=== PATIENT | female | born 1970 | race Caucasian/White ===

== ENCOUNTER 2021-02-07 01:50 | Inpatient (IN) | payer MEDICARE, OTHER ==
[2021-02-07 01:59] LABS: Glucose,Whole Blood 573 mg/dL (75-99)
[2021-02-07] MEDS ORDERED: Magnesium Replacement Protocol 1 EACH MISC MISCELLANE PRN (02:46)
[2021-02-07] MEDS ORDERED: Potassium Replacement Protocol 1 EACH MISC MISCELLANE PRN (02:46)
[2021-02-07 02:47] LABS: Basophils % (A) 0 %; Eosinophils % (A) 0 %; HCT 38.9 % (34.0-46.0); HGB 12.1 gm/dL (11.4-16.0); Hypochromasia Slight; Lymphocytes # (A) 1.5 k/uL (1.0-4.8); Lymphocytes % (A) 11 %; MCH 31.3 pg (25.0-35.0); MCV 100.7 fL (80.0-100.0); Monocytes # (A) 1.6 k/uL (0-1.0); Monocytes % (A) 11 %; Neutrophils # (A) 10.9 k/uL (1.3-7.7); Neutrophils % (A) 77 %; Platelet Count 209 k/uL (150-450); RBC 3.86 m/uL (3.80-5.40); RDW 11.2 % (11.5-15.5); WBC 14.1 k/uL (3.8-10.6)
[2021-02-07 02:59] LABS: ALT 19 U/L (4-34); AST 25 U/L (14-36); African American GFR (CKD) 39 (>60 ml/min/1.73 sqM); Albumin 3.4 g/dL (3.5-5.0); Alkaline Phosphatase 128 U/L (38-126); Anion Gap 26 mmol/L; Blood Urea Nitrogen 44 mg/dL (7-17); Calcium 8.8 mg/dL (8.4-10.2); Chloride 98 mmol/L (98-107); Non-African American GFR(CKD) 34 (>60 ml/min/1.73 sqM); Potassium 5.3 mmol/L (3.5-5.1); Sodium 130 mmol/L (137-145); Total Bilirubin 0.3 mg/dL (0.2-1.3); Total Protein 6.2 g/dL (6.3-8.2)
[2021-02-07 03:21] LABS: Carbon Dioxide 6 mmol/L (22-30); Glucose 565 mg/dL (74-99)
[2021-02-07] MEDS: SODIUM CHLORIDE 0.9% 1,000 ML IV SCH ×2 (03:24→09:05)
[2021-02-07 03:25] LABS: Glucose,Whole Blood 562 mg/dL (75-99)
[2021-02-07] MEDS: INSULIN REGULAR 100 UNIT in SODIUM CHLORIDE 0.9% 100 ML IV SCH ×2 (03:28→12:11)
[2021-02-07 04:24] LABS: Glucose,Whole Blood 550 mg/dL (75-99)
[2021-02-07] MEDS ORDERED: SODIUM CHLORIDE 0.9% 1,000 ML IV ONE (05:10)
[2021-02-07 05:24] LABS: Glucose,Whole Blood 482 mg/dL (75-99)
[2021-02-07 06:14] LABS: VBG PH 7.07 (7.31-7.41)
[2021-02-07 06:25] LABS: Glucose,Whole Blood 447 mg/dL (75-99)
[2021-02-07 06:29] LABS: Phosphorus 5.8 mg/dL (2.5-4.5); Potassium 5.4 mmol/L (3.5-5.1)
[2021-02-07 07:19] LABS: Glucose,Whole Blood 413 mg/dL (75-99)
--- NOTE | 2021-02-07 08:23 | ED ---
General Adult HPI - General Chief complaint: Recheck/Abnormal Lab/Rx Stated complaint: Hyperglycemia Time Seen by Provider: 02/07/21 01:57 Source: patient, EMS Mode of arrival: EMS Limitations: no limitations - History of Present Illness Initial comments: This patient is a 50-year-old woman who presents as a transfer from [facility]. The patient had gone to the other facility this evening. She states that she had gone there because her blood sugar had been running high for about a day and she had not been able to get it under control. Patient states she was not feeling well but was not able to identify any specific issue. She denied chest pain, dyspnea. She stated that her abdomen was uncomfortable but there was no specific pain. Denies dysuria. At the other facility, the patient was found to have blood glucose 713. Her venous pH was 7 with a pCO2 of 36. Patient started on IV fluids and insulin. There were reportedly no ICU beds there and patient requested to be transferred here. Chest x-ray was performed and showed just some atelectasis at the bases. Urinalysis consistent with DKA. Electrolytes showed sodium 123, potassium 5.7, chloride 85, CO2 8, anion gap 30, BUN 48, creatinine 1.6 COVID-19 swab negative. Troponin negative CBC showed mild leukocytosis 13.3 otherwise unremarkable. Onset/Timin -: days(s) Radiation: abdomen Quality: other (Cramping) Consistency: constant Improves with: none Worsens with: none Associated Symptoms: malaise Treatments Prior to Arrival: other (Insulin and IV fluids) - Related Data Home Medications Medication Instructions Recorded Confirmed Albuterol Inhaler [Ventolin Hfa 2 puff INHALATION RT-QID PRN 02/07/21 02/08/21 Inhaler] Clopidogrel [Plavix] 75 mg PO DAILY 02/07/21 02/08/21 Dextroamphetamine/Amphetamine 10 mg PO BID 02/07/21 02/08/21 [Adderall] Divalproex [Depakote] 500 mg PO BID 02/07/21 02/08/21 Enalapril [Vasotec] 10 mg PO BID 02/07/21 02/08/21 Ergocalciferol (Vitamin D2) 1,250 mcg PO Q7D 02/07/21 02/08/21 [Drisdol (50,000 Iu)] Gabapentin [Neurontin] 300 mg PO QID 02/07/21 02/08/21 HYDROmorphone HCL [Dilaudid] 8 mg PO TID PRN 02/07/21 02/08/21 INSULIN LISPRO (For Pump) [humaLOG 0.01 units SQ-PUMP CONTINUOUS 02/07/21 02/08/21 (For Pump)] Levothyroxine Sodium 150 mcg PO DAILY 02/07/21 02/08/21 Sertraline HCl [Zoloft] 100 mg PO DAILY 02/07/21 02/08/21 Simvastatin [Zocor] 40 mg PO DAILY 02/07/21 02/08/21 Amitriptyline HCl [Elavil] 25 mg PO BID 02/08/21 02/08/21 Carvedilol [Coreg] 25 mg PO BID 02/08/21 02/08/21 QUEtiapine FUMARATE [SEROquel] 300 mg PO HS 02/08/21 02/08/21 QUEtiapine [SEROquel] 50 mg PO BID 02/08/21 02/08/21 Travoprost [Travoprost 0.004%] 1 drop BOTH EYES HS 02/08/21 02/08/21 tiZANidine [Zanaflex] 4 mg PO Q6HR PRN 02/08/21 02/08/21 Allergies Allergy/AdvReac Type Severity Reaction Status Date / Time carbamazepine [From Tegretol] Allergy Rash/Hives Verified 02/07/21 07:39 codeine Allergy Rash/Hives Verified 02/07/21 07:39 morphine Allergy Rash/Hives Verified 02/07/21 07:39 Review of Systems ROS Statement: Those systems with pertinent positive or pertinent negative responses have been documented in the HPI. ROS Other: All systems not noted in ROS Statement are negative. Constitutional: Denies: fever, chills, weakness Eyes: Denies: vision change ENT: Denies: throat pain, congestion Respiratory: Denies: cough, dyspnea Cardiovascular: Denies: chest pain, palpitations, edema Gastrointestinal: Denies: abdominal pain, nausea, vomiting, diarrhea, melena, hematochezia Genitourinary: Denies: dysuria, hematuria Musculoskeletal: Denies: back pain Skin: Denies: rash Neurological: Denies: headache, weakness General Exam Limitations: no limitations General appearance: alert, in no apparent distress Head exam: Present: atraumatic, normocephalic Eye exam: Present: normal appearance. Absent: scleral icterus, conjunctival injection ENT exam: Present: mucous membranes dry Neck exam: Present: normal inspection, full ROM Respiratory exam: Present: normal lung sounds bilaterally. Absent: respiratory distress, wheezes, rales, rhonchi, stridor Cardiovascular Exam: Present: regular rate, normal rhythm, normal heart sounds. Absent: systolic murmur, diastolic murmur, rubs, gallop GI/Abdominal exam: Present: soft. Absent: distended, tenderness, guarding, rebound, rigid, mass Extremities exam: Present: normal inspection, normal capillary refill Back exam: Present: normal inspection. Absent: CVA tenderness (R), CVA tenderness (L) Neurological exam: Present: alert Skin exam: Present: warm, dry, intact, normal color. Absent: rash Course Vital Signs 02/07/21 02/07/21 02/07/21 01:57 03:00 04:00 Temperature 97.4 F L Pulse Rate 104 H 106 H 109 H Respiratory 20 20 20 Rate Blood Pressure 120/51 116/55 115/55 O2 Sat by Pulse 99 100 Oximetry 02/07/21 02/07/21 02/07/21 05:00 06:00 07:20 Temperature Pulse Rate 109 H 110 H 111 H Respiratory 20 20 21 Rate Blood Pressure 122/61 120/60 143/73 O2 Sat by Pulse 99 100 98 Oximetry Medical Decision Making - Medical Decision Making Patient's 50-year-old woman transferred here to have treatment for DKA. Labs h ave had some mild improvement versus previous. Her pH has improved from 7.00 to 7.07. Blood glucose still in upper 400s. The IV insulin and fluids are continued. Patient admitted. Case discussed with Dr. Gross, and patient will go to ICU for further management. - Lab Data Result diagrams: 02/08/21 04:11 02/08/21 08:41 Lab Results 02/07/21 02/07/21 02/07/21 Range/Units 01:57 02:13 02:13 WBC 14.1 H (3.8-10.6) k/uL RBC 3.86 (3.80-5.40) m/uL Hgb 12.1 (11.4-16.0) gm/dL Hct 38.9 (34.0-46.0) % MCV 100.7 H (80.0-100.0) fL MCH 31.3 (25.0-35.0) pg MCHC 31.0 (31.0-37.0) g/dL RDW 11.2 L (11.5-15.5) % Plt Count 209 (150-450) k/uL MPV 9.0 Neutrophils % 77 % Lymphocytes % 11 % Monocytes % 11 % Eosinophils % 0 % Basophils % 0 % Neutrophils # 10.9 H (1.3-7.7) k/uL Lymphocytes # 1.5 (1.0-4.8) k/uL Monocytes # 1.6 H (0-1.0) k/uL Eosinophils # 0.0 (0-0.7) k/uL Basophils # 0.0 (0-0.2) k/uL Hypochromasia Slight VBG pH (7.31-7.41) VBG pCO2 (37-51) mmHg VBG HCO3 (24-28) mmol/L Sodium 130 L (137-145) mmol/L Potassium 5.3 H (3.5-5.1) mmol/L Chloride 98 (98-107) mmol/L Carbon Dioxide 6 L* (22-30) mmol/L Anion Gap 26 mmol/L BUN 44 H (7-17) mg/dL Creatinine 1.74 H (0.52-1.04) mg/dL Est GFR (CKD-EPI)AfAm 39 (>60 ml/min/1.73 sqM) Est GFR (CKD-EPI)NonAf 34 (>60 ml/min/1.73 sqM) Glucose 565 H* (74-99) mg/dL POC Glucose (mg/dL) 573 H (75-99) mg/dL POC Glu Rn Resource Nurse ID Sandie Melo Calcium 8.8 (8.4-10.2) mg/dL Phosphorus (2.5-4.5) mg/dL Total Bilirubin 0.3 (0.2-1.3) mg/dL AST 25 (14-36) U/L ALT 19 (4-34) U/L Alkaline Phosphatase 128 H (38-126) U/L Total Protein 6.2 L (6.3-8.2) g/dL Albumin 3.4 L (3.5-5.0) g/dL Acetone, Qual Positive (Negative) Coronavirus (PCR) (Not Detectd) 02/07/21 02/07/21 02/07/21 Range/Units 03:13 03:22 04:23 WBC (3.8-10.6) k/uL RBC (3.80-5.40) m/uL Hgb (11.4-16.0) gm/dL Hct (34.0-46.0) % MCV (80.0-100.0) fL MCH (25.0-35.0) pg MCHC (31.0-37.0) g/dL RDW (11.5-15.5) % Plt Count (150-450) k/uL MPV Neutrophils % % Lymphocytes % % Monocytes % % Eosinophils % % Basophils % % Neutrophils # (1.3-7.7) k/uL Lymphocytes # (1.0-4.8) k/uL Monocytes # (0-1.0) k/uL Eosinophils # (0-0.7) k/uL Basophils # (0-0.2) k/uL Hypochromasia VBG pH (7.31-7.41) VBG pCO2 (37-51) mmHg VBG HCO3 (24-28) mmol/L Sodium (137-145) mmol/L Potassium (3.5-5.1) mmol/L Chloride (98-107) mmol/L Carbon Dioxide (22-30) mmol/L Anion Gap mmol/L BUN (7-17) mg/dL Creatinine (0.52-1.04) mg/dL Est GFR (CKD-EPI)AfAm (>60 ml/min/1.73 sqM) Est GFR (CKD-EPI)NonAf (>60 ml/min/1.73 sqM) Glucose (74-99) mg/dL POC Glucose (mg/dL) 562 H 550 H (75-99) mg/dL POC Glu Rn Resource Nurse ID Melo, Sandie Melo, Sandie Calcium (8.4-10.2) mg/dL Phosphorus (2.5-4.5) mg/dL Total Bilirubin (0.2-1.3) mg/dL AST (14-36) U/L ALT (4-34) U/L Alkaline Phosphatase (38-126) U/L Total Protein (6.3-8.2) g/dL Albumin (3.5-5.0) g/dL Acetone, Qual (Negative) Coronavirus (PCR) Not Detected (Not Detectd) 02/07/21 02/07/21 02/07/21 Range/Units 05:23 06:01 06:01 WBC (3.8-10.6) k/uL RBC (3.80-5.40) m/uL Hgb (11.4-16.0) gm/dL Hct (34.0-46.0) % MCV (80.0-100.0) fL MCH (25.0-35.0) pg MCHC (31.0-37.0) g/dL RDW (11.5-15.5) % Plt Count (150-450) k/uL MPV Neutrophils % % Lymphocytes % % Monocytes % % Eosinophils % % Basophils % % Neutrophils # (1.3-7.7) k/uL Lymphocytes # (1.0-4.8) k/uL Monocytes # (0-1.0) k/uL Eosinophils # (0-0.7) k/uL Basophils # (0-0.2) k/uL Hypochromasia VBG pH 7.07 L* (7.31-7.41) VBG pCO2 24 L (37-51) mmHg VBG HCO3 7 L* (24-28) mmol/L Sodium 131 L (137-145) mmol/L Potassium 5.4 H (3.5-5.1) mmol/L Chloride 101 (98-107) mmol/L Carbon Dioxide 6 L* (22-30) mmol/L Anion Gap 24 mmol/L BUN 45 H (7-17) mg/dL Creatinine 1.71 H (0.52-1.04) mg/dL Est GFR (CKD-EPI)AfAm 40 (>60 ml/min/1.73 sqM) Est GFR (CKD-EPI)NonAf 35 (>60 ml/min/1.73 sqM) Glucose 447 H (74-99) mg/dL POC Glucose (mg/dL) 482 H (75-99) mg/dL POC Glu Rn Resource Nurse ID Sandie Melo Calcium (8.4-10.2) mg/dL Phosphorus 5.8 H (2.5-4.5) mg/dL Total Bilirubin (0.2-1.3) mg/dL AST (14-36) U/L ALT (4-34) U/L Alkaline Phosphatase (38-126) U/L Total Protein (6.3-8.2) g/dL Albumin (3.5-5.0) g/dL Acetone, Qual (Negative) Coronavirus (PCR) (Not Detectd) - EKG Data -: EKG Interpreted by Me EKG shows normal: sinus rhythm, axis (Rightward axis), intervals (Normal), QRS complexes (Normal), ST-T waves (Normal) Rate: tachycardia (Rate 106 bpm) Critical Care Time Critical Care Time: Yes (40 minutes) Disposition Clinical Impression: Diabetic ketoacidosis Disposition: ADMITTED IP TO THIS [facility] Condition: Good Is patient prescribed a controlled substance at d/c from ED?: No
[2021-02-07 08:30] LABS: Glucose,Whole Blood 342 mg/dL (75-99)
[2021-02-07 09:41] LABS: Glucose,Whole Blood 281 mg/dL (75-99)
[2021-02-07] MEDS: D5-0.45% NACL WITH KCL 20MEQ/L 1,000 ML IV SCH ×2 (10:24→18:00)
[2021-02-07 10:31] LABS: Glucose,Whole Blood 260 mg/dL (75-99)
[2021-02-07 11:26] LABS: Glucose,Whole Blood 244 mg/dL (75-99)
[2021-02-07 12:09] LABS: Glucose,Whole Blood 248 mg/dL (75-99)
[2021-02-07] MEDS ORDERED: ALBUTEROL NEBULIZED 2.5 MG/3 ML INHALATION PRN (12:47)
--- NOTE | 2021-02-07 12:47 | P.CNPUL ---
History of Present Illness Consult date: 02/07/21 Requesting physician: Esteban Gray Reason for consult: other (DKA) Chief complaint: Weakness and cannot control sugars History of present illness: This is a 50-year-old female with history of type 1 diabetes, benign essential hypertension, hypothyroidism, asthma, diabetic neuropathy, patient was seen yesterday at [facility] complaining of 1 day history of feeling weak, tired, and could not get her sugars under control. Patient had no nausea no vomiting no abdominal pain. Patient was diagnosed as having DKA in the ER at [facility], patient needs to be admitted to the ICU, however there was possibly no bedsoresto think in the ICU, patient was transferred to [facility]. Her sugar at [facility] was 713, she had extremely low bicarb, and elevated anion gap. Patient was started on IV fluids in the form of 0.9 normal saline, she is also started on insulin drip, transferred to the ER and she was eventually admitted to the ICU. Hence I was asked to see her on consultation. Patient continued on the DKA protocol. Labs in our ER showed an ion gap of 22 bicarb of 9 BUN of 43 creatinine of 1.53 sugar was down to 342. And she had positive ketones. I evaluated the patient in the ICU, and she is not a great historian, could not volunteer much information as he seemed generally weak and lethargic. However patient is responding well to IV fluids and to insulin drip. She had 0.9 normal saline at 200 mL/h. She also had insulin at 9.8 units per hour. According to the patient she had malfunctioning insulin pump patient denies any fever, no chills, no cough, no wheezing, no nausea no vomiting no abdominal pain Review of Systems Patient is a very poor historian, nonetheless the patient complained of gener alized weakness, difficulty controlling her sugars, she had no fever no chills, no cough, no wheezing, no chest pain, no nausea no vomiting no abdominal pain no dysuria and no frequency no urgency. No headaches no blurred vision no dizziness. Past Medical History Past Medical History: Diabetes Mellitus Additional Past Medical History / Comment(s): Past medical history obtained from patient and her Son. Pt states she has chronic kidney disease stage 3, neuropathy, retinopathy, she has had a heart cath with a stent placed, and she has an insulin pump. Pts son states his mother has also had gastric bypass surgery. History of Any Multi-Drug Resistant Organisms: None Reported Past Surgical History: Bariatric Surgery, Heart Catheterization With Stent Past Anesthesia/Blood Transfusion Reactions: No Reported Reaction Date of Last Stent Placement:: patient is unsure, pts son is also unsure Smoking Status: Former smoker Medications and Allergies Home Medications Medication Instructions Recorded Confirmed Type Albuterol Inhaler [Ventolin Hfa 2 puff INHALATION RT-QID PRN 02/07/21 02/07/21 History Inhaler] Carvedilol [Coreg] 6.25 mg PO BID 02/07/21 02/07/21 History Clopidogrel [Plavix] 75 mg PO DAILY 02/07/21 02/07/21 History Dextroamphetamine/Amphetamine 10 mg PO BID 02/07/21 02/07/21 History [Adderall] Divalproex [Depakote] 500 mg PO BID 02/07/21 02/07/21 History Enalapril [Vasotec] 10 mg PO BID 02/07/21 02/07/21 History Ergocalciferol (Vitamin D2) 1,250 mcg PO WEEKLY 02/07/21 02/07/21 History [Drisdol (50,000 Iu)] Gabapentin [Neurontin] 300 mg PO QID 02/07/21 02/07/21 History HYDROmorphone HCL [Dilaudid] 8 mg PO TID PRN 02/07/21 02/07/21 History INSULIN LISPRO (For Pump) [humaLOG 0.01 units SQ-PUMP CONTINUOUS 02/07/21 02/07/21 History (For Pump)] Levothyroxine Sodium 150 mcg PO DAILY 02/07/21 02/07/21 History Sertraline HCl [Zoloft] 100 mg PO DAILY 02/07/21 02/07/21 History Simvastatin [Zocor] 40 mg PO DAILY 02/07/21 02/07/21 History Allergies Allergy/AdvReac Type Severity Reaction Status Date / Time carbamazepine [From Tegretol] Allergy Rash/Hives Verified 02/07/21 07:39 codeine Allergy Rash/Hives Verified 02/07/21 07:39 morphine Allergy Rash/Hives Verified 02/07/21 07:39 Physical Exam Vitals: Vital Signs Temp Pulse Resp BP Pulse Ox 02/07/21 12:00 99.2 F 105 H 19 158/71 96 02/07/21 11:00 98 16 143/68 96 02/07/21 10:00 103 H 18 136/46 97 02/07/21 09:00 110 H 16 136/46 99 02/07/21 08:00 98.6 F 104 H 16 143/73 98 02/07/21 07:20 111 H 21 143/73 98 02/07/21 06:00 110 H 20 120/60 100 02/07/21 05:00 109 H 20 122/61 99 02/07/21 04:00 109 H 20 115/55 100 02/07/21 03:00 106 H 20 116/55 02/07/21 01:57 97.4 F L 104 H 20 120/51 99 Intake and Output 02/06/21 02/07/21 02/07/21 22:59 06:59 14:59 Intake Total 1172.055 Output Total 700 Balance 472.055 Intake: IV 1100 D5-0.45% NaCl with KCl 300 20Meq/l 1,000 ml @ 150 mls/hr IV .[id number] [facility] Rx# :[id number] Sodium Chloride 0.9% 1, 800 000 ml @ 200 mls/hr IV . Q5H [facility] Rx#:[id number] Intake, IV Titration 72.055 Amount Insulin Regular 100 unit 72.055 In Sodium Chloride 0.9% 100 ml @ 0.1 UNITS/KG/HR 6.872 mls/hr IV .[id number] [facility] Rx#:[id number] Output: Urine 700 Other: Voiding Method Bedside Commode # Voids 0 Weight 68.039 kg 68.039 kg Physical Exam: Revealed a 50-year-old female in no form of respiratory distress, noted to be generally weak. Head: Atraumatic, normocephalic. HEENT:[Neck is supple.] [No neck masses.] [No thyromegaly.] [No JVD.] Chest: [Clear throughout, no crackles, no rhonchi, no wheezes.] Cardiac Exam: [Normal S1 and S2, no S3 gallop, no murmur.] Abdomen: [Soft, nontender, no megaly, no rebound, no guarding, normal bowel sounds.] Extremities: [No clubbing, no edema, no cyanosis.] Neurological Exam: Patient is noted to be slightly lethargic, however arousable, follows simple instructions, but prefers to be left alone. psychiatric: Depressed mood, blunt affect, relatively normal mental status when awakened fully. She tends to be quite sleepy. Skin: No rashes. Results - Laboratory Findings CBC and BMP: 02/07/21 02:13 02/07/21 10:15 Abnormal lab findings: Abnormal Labs 02/07/21 02/07/21 02/07/21 01:57 02:13 02:13 WBC 14.1 H MCV 100.7 H RDW 11.2 L Neutrophils # 10.9 H Monocytes # 1.6 H VBG pH VBG pCO2 VBG HCO3 Sodium 130 L Potassium 5.3 H Carbon Dioxide 6 L* BUN 44 H Creatinine 1.74 H Glucose 565 H* POC Glucose (mg/dL) 573 H Phosphorus Alkaline Phosphatase 128 H Total Protein 6.2 L Albumin 3.4 L 02/07/21 02/07/21 02/07/21 03:22 04:23 05:23 WBC MCV RDW Neutrophils # Monocytes # VBG pH VBG pCO2 VBG HCO3 Sodium Potassium Carbon Dioxide BUN Creatinine Glucose POC Glucose (mg/dL) 562 H 550 H 482 H Phosphorus Alkaline Phosphatase Total Protein Albumin 02/07/21 02/07/21 02/07/21 06:01 06:01 06:24 WBC MCV RDW Neutrophils # Monocytes # VBG pH 7.07 L* VBG pCO2 24 L VBG HCO3 7 L* Sodium 131 L Potassium 5.4 H Carbon Dioxide 6 L* BUN 45 H Creatinine 1.71 H Glucose 447 H POC Glucose (mg/dL) 447 H Phosphorus 5.8 H Alkaline Phosphatase Total Protein Albumin 02/07/21 02/07/21 02/07/21 07:18 08:29 09:40 WBC MCV RDW Neutrophils # Monocytes # VBG pH VBG pCO2 VBG HCO3 Sodium Potassium Carbon Dioxide BUN Creatinine Glucose POC Glucose (mg/dL) 413 H 342 H 281 H Phosphorus Alkaline Phosphatase Total Protein Albumin 02/07/21 02/07/21 02/07/21 10:15 10:29 11:24 WBC MCV RDW Neutrophils # Monocytes # VBG pH VBG pCO2 VBG HCO3 Sodium 136 L Potassium Carbon Dioxide 9 L* BUN 43 H Creatinine 1.53 H Glucose 298 H POC Glucose (mg/dL) 260 H 244 H Phosphorus Alkaline Phosphatase Total Protein Albumin 02/07/21 12:08 WBC MCV RDW Neutrophils # Monocytes # VBG pH VBG pCO2 VBG HCO3 Sodium Potassium Carbon Dioxide BUN Creatinine Glucose POC Glucose (mg/dL) 248 H Phosphorus Alkaline Phosphatase Total Protein Albumin Assessment and Plan Assessment: Impression: Acute diabetic ketoacidosis Type 1 diabetes Malfunctioning insulin pump or possible noncompliance. History of hypothyroidism History of diabetic neuropathy Benign essential hypertension Dyslipidemia Recommendation: Continue resident treatment plan as per DKA protocol. Continue to monitor in the ICU. GI and DVT prophylaxis. Resume home meds. We will continue to follow. Time with Patient: Greater than 30
[2021-02-07 13:25] LABS: Glucose,Whole Blood 210 mg/dL (75-99)
[2021-02-07] MEDS: NON FORMULARY DRUG (Dextroamphetamine/Amphetamine [Adderall] 10 MG Tablet) PO SCH ×2 (14:11→19:58)
[2021-02-07 14:22] LABS: Glucose,Whole Blood 173 mg/dL (75-99)
[2021-02-07] MEDS: lisinopriL 20 MG TAB PO SCH ×2 (14:35→20:27)
[2021-02-07] MEDS: DIVALPROEX 500 MG TABLET.DR PO SCH ×2 (14:35→20:27)
[2021-02-07] MEDS: SERTRALINE 100 MG TAB PO SCH (14:35)
[2021-02-07] MEDS: GABAPENTIN 300 MG CAP PO SCH ×4 (14:35→22:51)
[2021-02-07] MEDS: LEVOTHYROXINE 75 MCG TAB PO SCH (15:09)
[2021-02-07 15:19] LABS: Glucose,Whole Blood 201 mg/dL (75-99)
[2021-02-07 17:03] LABS: Glucose,Whole Blood 148 mg/dL (75-99)
[2021-02-07 18:00] LABS: Glucose,Whole Blood 122 mg/dL (75-99)
[2021-02-07] MEDS: carvediloL 6.25 MG TAB PO SCH (18:06)
[2021-02-07 18:42] LABS: Albumin 3.5 g/dL (3.5-5.0); Calcium 8.9 mg/dL (8.4-10.2); Magnesium 2.1 mg/dL (1.6-2.3); Phosphorus 2.5 mg/dL (2.5-4.5); Total Bilirubin 0.5 mg/dL (0.2-1.3); Total Protein 6.7 g/dL (6.3-8.2)
[2021-02-07 18:43] LABS: Potassium 4.7 mmol/L (3.5-5.1)
[2021-02-07 19:11] LABS: Glucose,Whole Blood 104 mg/dL (75-99)
[2021-02-07 19:59] LABS: Glucose,Whole Blood 134 mg/dL (75-99)
[2021-02-07 21:20] LABS: Glucose,Whole Blood 132 mg/dL (75-99)
[2021-02-07 22:50] LABS: Glucose,Whole Blood 176 mg/dL (75-99)
[2021-02-07 23:28] LABS: Calcium 8.8 mg/dL (8.4-10.2); Potassium 5.2 mmol/L (3.5-5.1)
[2021-02-08 00:38] LABS: Glucose,Whole Blood 243 mg/dL (75-99)
[2021-02-08 02:05] LABS: Glucose,Whole Blood 301 mg/dL (75-99)
[2021-02-08 03:03] LABS: Glucose,Whole Blood 241 mg/dL (75-99)
[2021-02-08 03:58] LABS: Glucose,Whole Blood 265 mg/dL (75-99)
[2021-02-08] MEDS: D5-0.45% NACL WITH KCL 20MEQ/L 1,000 ML IV SCH ×2 (03:58→06:23)
[2021-02-08 04:45] LABS: Basophils % (A) 0 %; Eosinophils # (A) 0.1 k/uL (0-0.7); Eosinophils % (A) 1 %; HCT 37.6 % (34.0-46.0); HGB 13.6 gm/dL (11.4-16.0); Lymphocytes # (A) 2.1 k/uL (1.0-4.8); Lymphocytes % (A) 20 %; MCH 32.3 pg (25.0-35.0); MCHC 36.2 g/dL (31.0-37.0); Monocytes # (A) 0.5 k/uL (0-1.0); Monocytes % (A) 5 %; Neutrophils # (A) 7.7 k/uL (1.3-7.7); Neutrophils % (A) 73 %; Platelet Count 205 k/uL (150-450); RBC 4.21 m/uL (3.80-5.40); RDW 12.4 % (11.5-15.5); WBC 10.6 k/uL (3.8-10.6)
[2021-02-08 04:48] LABS: MCV 89.2 fL (80.0-100.0)
[2021-02-08 05:05] LABS: Glucose,Whole Blood 212 mg/dL (75-99)
[2021-02-08 05:05] LABS: Calcium 8.9 mg/dL (8.4-10.2)
[2021-02-08 05:46] LABS: Potassium 4.4 mmol/L (3.5-5.1)
[2021-02-08] MEDS: LEVOTHYROXINE 75 MCG TAB PO SCH (06:23)
[2021-02-08] MEDS: carvediloL 6.25 MG TAB PO SCH (06:23)
[2021-02-08 06:28] LABS: Glucose,Whole Blood 164 mg/dL (75-99)
[2021-02-08 07:15] LABS: Glucose,Whole Blood 178 mg/dL (75-99)
[2021-02-08 08:15] LABS: Glucose,Whole Blood 143 mg/dL (75-99)
[2021-02-08] MEDS: INSULIN REGULAR 100 UNIT in SODIUM CHLORIDE 0.9% 100 ML IV SCH (08:25)
[2021-02-08] MEDS: NON FORMULARY DRUG (Dextroamphetamine/Amphetamine [Adderall] 10 MG Tablet) PO SCH (08:26)
[2021-02-08 08:35] VITALS: TEMP 98.1
[2021-02-08] MEDS ORDERED: ATORVASTATIN 20 MG TAB PO SCH (09:00)
[2021-02-08] MEDS ORDERED: CLOPIDOGREL 75 MG TAB PO SCH (09:00)
[2021-02-08 09:04] LABS: Glucose,Whole Blood 145 mg/dL (75-99)
[2021-02-08 09:11] LABS: African American GFR (CKD) >90 (>60 ml/min/1.73 sqM); Anion Gap 6 mmol/L; Blood Urea Nitrogen 22 mg/dL (7-17); Calcium 8.9 mg/dL (8.4-10.2); Carbon Dioxide 23 mmol/L (22-30); Chloride 110 mmol/L (98-107); Glucose 168 mg/dL (74-99); Non-African American GFR(CKD) 82 (>60 ml/min/1.73 sqM); Potassium 4.6 mmol/L (3.5-5.1); Sodium 139 mmol/L (137-145)
[2021-02-08] MEDS: lisinopriL 20 MG TAB PO SCH (09:22)
[2021-02-08] MEDS: GABAPENTIN 300 MG CAP PO SCH (09:22)
[2021-02-08] MEDS: SERTRALINE 100 MG TAB PO SCH (09:22)
[2021-02-08] MEDS: DIVALPROEX 500 MG TABLET.DR PO SCH (09:22)
--- NOTE | 2021-02-08 10:00 | P.PN ---
Subjective Progress Note Date: 02/08/21 Principal diagnosis: Acute diabetic ketoacidosis This is a 50-year-old female with history of type 1 diabetes, benign essential hypertension, hypothyroidism, asthma, diabetic neuropathy, patient was seen yesterday at [facility] complaining of 1 day history of feeling weak, tired, and could not get her sugars under control. Patient had no nausea no vomiting no abdominal pain. Patient was diagnosed as having DKA in the ER at [facility], patient needs to be admitted to the ICU, however there was possibly no bedsoresto think in the ICU, patient was transferred to [facility]. Her sugar at [facility] was 713, she had extremely low bicarb, and elevated anion gap. Patient was started on IV fluids in the form of 0.9 normal saline, she is also started on insulin drip, transferred to the ER and she was eventually admitted to the ICU. Hence I was asked to see her on consultation. Patient continued on the DKA protocol. Labs in our ER showed anion gap of 22 bicarb of 9 BUN of 43 creatinine of 1.53 sugar was down to 342. And she had positive ketones. I evaluated the patient in the ICU, and she is not a great historian, could not volunteer much information as he seemed generally weak and lethargic. However patient is responding well to IV fluids and to insulin drip. She had 0.9 normal saline at 200 mL/h. She also had insulin at 9.8 units per hour. According to the patient she had malfunctioning insulin pump patient denies any fever, no chills, no cough, no wheezing, no nausea no vomiting no abdominal pain On 02/08/2021 the patient was seen in follow-up in the intensive care unit, she is a bit lethargic, but easily wakes up to verbal stimulation, she is answering questions appropriately. She has no specific complaints, she is breathing comfortably, she is currently on room air, pulse ox is 97-95%, afebrile, hemodynamically she has been stable, she is in sinus mechanism. She is currently on insulin infusion at 1.7 units per hour, and a D5 half-normal saline with 20 of potassium at a rate of 150 ML per hour. Her anion gap has closed and is currently at 6, CO2 is 23, B1 is 22, creatinine 0.84, sodium is 139 and the potassium is 4.6. This was on this morning's labs. Her white count is 10.6, hemoglobin is 13.6, platelet count is 205. Patient states the reason her blood sugars became very uncontrolled is because her insulin pump was malfunctioning. She has no other complaints otherwise, no nausea or vomiting. No abdominal pain. No shortness of breath, no cough. She will be started on oral diet today. Objective - Vital Signs Vital signs: Vital Signs Temp 98.1 F 02/08/21 08:00 Pulse 88 02/08/21 09:00 Resp 11 L 02/08/21 09:00 BP 147/66 02/08/21 09:00 Pulse Ox 99 02/08/21 09:00 Intake & Output 02/07/21 02/08/21 02/08/21 18:59 06:59 18:59 Intake Total 2129.925 1965.003 667.346 Output Total 1100 950 200 Balance 8319.490 4474.003 467.346 Weight 68.039 kg 86.5 kg Intake: IV 2000 1950 300 D5-0.45% NaCl with KCl 1200 1950 300 20Meq/l 1,000 ml @ 150 mls/hr IV .Q6H40M [facility] Rx# :[id number] Sodium Chloride 0.9% 1, 800 000 ml @ 200 mls/hr IV . Q5H [facility] Rx#:[id number] Intake, IV Titration 129.925 15.003 17.346 Amount Insulin Regular 100 unit 129.925 15.003 17.346 In Sodium Chloride 0.9% 100 ml @ 0.1 UNITS/KG/HR 6.872 mls/hr IV .[id number] [facility] Rx#:[id number] Oral 350 Output: Urine 1100 950 200 Other: Voiding Method Bedside Commode Bedside Commode Bedside Commode # Voids 1 0 2 # Bowel Movements 1 - Exam GENERAL EXAM: Alert, pleasant, 50-year-old white female, on room air, with a pulse ox of 97-99% comfortable in no apparent distress. HEAD: Normocephalic/atraumatic. EYES: Normal reaction of pupils, equal size. Conjunctiva pink, sclera white. NOSE: Clear with pink turbinates. THROAT: No erythema or exudates. NECK: No masses, no JVD, no thyroid enlargement, no adenopathy. CHEST: No chest wall deformity. Symmetrical expansion. LUNGS: Equal air entry with no crackles, wheeze, rhonchi or dullness. CVS: Regular rate and rhythm, normal S1 and S2, no gallops, no murmurs, no rubs ABDOMEN: Soft, nontender. No hepatosplenomegaly, normal bowel sounds, no guarding or rigidity. EXTREMITIES: No clubbing, no edema, no cyanosis, 2+ pulses and upper and lower extremities. MUSCULOSKELETAL: Muscle strength and tone normal. SPINE: No scoliosis or deformity SKIN: No rashes CENTRAL NERVOUS SYSTEM: Alert and oriented -3. No focal deficits, tone is normal in all 4 extremities. PSYCHIATRIC: Alert and oriented -3. Appropriate affect. Intact judgment and insight. - Labs CBC & Chem 7: 02/08/21 04:11 02/08/21 08:41 Labs: Abnormal Lab Results - Last 24 Hours (Table) 02/07/21 02/07/21 02/07/21 Range/Units 10:15 10:29 11:24 Sodium 136 L (137-145) mmol/L Potassium (3.5-5.1) mmol/L Chloride (98-107) mmol/L Carbon Dioxide 9 L* (22-30) mmol/L BUN 43 H (7-17) mg/dL Creatinine 1.53 H (0.52-1.04) mg/dL Glucose 298 H (74-99) mg/dL POC Glucose (mg/dL) 260 H 244 H (75-99) mg/dL 02/07/21 02/07/21 02/07/21 Range/Units 12:08 13:24 14:21 Sodium (137-145) mmol/L Potassium (3.5-5.1) mmol/L Chloride (98-107) mmol/L Carbon Dioxide (22-30) mmol/L BUN (7-17) mg/dL Creatinine (0.52-1.04) mg/dL Glucose (74-99) mg/dL POC Glucose (mg/dL) 248 H 210 H 173 H (75-99) mg/dL 02/07/21 02/07/21 02/07/21 Range/Units 15:16 17:01 17:58 Sodium (137-145) mmol/L Potassium (3.5-5.1) mmol/L Chloride (98-107) mmol/L Carbon Dioxide (22-30) mmol/L BUN (7-17) mg/dL Creatinine (0.52-1.04) mg/dL Glucose (74-99) mg/dL POC Glucose (mg/dL) 201 H 148 H 122 H (75-99) mg/dL 02/07/21 02/07/21 02/07/21 Range/Units 18:00 19:09 19:56 Sodium (137-145) mmol/L Potassium (3.5-5.1) mmol/L Chloride 108 H (98-107) mmol/L Carbon Dioxide 18 L (22-30) mmol/L BUN 39 H (7-17) mg/dL Creatinine 1.07 H (0.52-1.04) mg/dL Glucose 137 H (74-99) mg/dL POC Glucose (mg/dL) 104 H 134 H (75-99) mg/dL 02/07/21 02/07/21 02/07/21 Range/Units 21:18 22:22 22:49 Sodium 136 L (137-145) mmol/L Potassium 5.2 H (3.5-5.1) mmol/L Chloride 108 H (98-107) mmol/L Carbon Dioxide 19 L (22-30) mmol/L BUN 33 H (7-17) mg/dL Creatinine 1.05 H (0.52-1.04) mg/dL Glucose 181 H (74-99) mg/dL POC Glucose (mg/dL) 132 H 176 H (75-99) mg/dL 02/08/21 02/08/21 02/08/21 Range/Units 00:36 02:04 03:01 Sodium (137-145) mmol/L Potassium (3.5-5.1) mmol/L Chloride (98-107) mmol/L Carbon Dioxide (22-30) mmol/L BUN (7-17) mg/dL Creatinine (0.52-1.04) mg/dL Glucose (74-99) mg/dL POC Glucose (mg/dL) 243 H 301 H 241 H (75-99) mg/dL 02/08/21 02/08/21 02/08/21 Range/Units 03:57 04:11 05:03 Sodium 135 L (137-145) mmol/L Potassium (3.5-5.1) mmol/L Chloride 109 H (98-107) mmol/L Carbon Dioxide 16 L (22-30) mmol/L BUN 28 H (7-17) mg/dL Creatinine (0.52-1.04) mg/dL Glucose 238 H (74-99) mg/dL POC Glucose (mg/dL) 265 H 212 H (75-99) mg/dL 02/08/21 02/08/21 02/08/21 Range/Units 06:27 07:14 08:14 Sodium (137-145) mmol/L Potassium (3.5-5.1) mmol/L Chloride (98-107) mmol/L Carbon Dioxide (22-30) mmol/L BUN (7-17) mg/dL Creatinine (0.52-1.04) mg/dL Glucose (74-99) mg/dL POC Glucose (mg/dL) 164 H 178 H 143 H (75-99) mg/dL 02/08/21 02/08/21 Range/Units 08:41 09:02 Sodium (137-145) mmol/L Potassium (3.5-5.1) mmol/L Chloride 110 H (98-107) mmol/L Carbon Dioxide (22-30) mmol/L BUN 22 H (7-17) mg/dL Creatinine (0.52-1.04) mg/dL Glucose 168 H (74-99) mg/dL POC Glucose (mg/dL) 145 H (75-99) mg/dL Assessment and Plan Plan: Assessment: #1. Acute diabetic ketoacidosis related to a malfunctioning insulin pump, resolved #2. Type 1 diabetes mellitus, with previous episode of DKA #3. History of hypothyroidism #4. History of diabetic neuropathy #5. Benign essential hypertension #6. Dyslipidemia Plan: Patient can be transitioned over to subcutaneous insulin and basal insulin Or she can be resumed on her insulin pump if it is repaired and functional We will defer to the primary care service for that Patient will be started on oral diet Continue daily labs including electrolytes, renal function Home medications have been resumed From pulmonary perspective she could be transferred to medical surgical floor later today I performed a history & physical examination of the patient and discussed their management with my nurse practitioner, Corrina Abraham. I reviewed the nurse pra ctitioner's note and agree with the documented findings and plan of care. Lung sounds are positive for diminished breath sounds throughout the lung preciado. The findings and the impression was discussed with the patient. I attest to the documentation by the nurse practitioner. Time with Patient: Less than 30
[2021-02-08 10:03] VITALS: BP 136/57; PULSE 91; RESP 25
[2021-02-08 10:08] LABS: Glucose,Whole Blood 200 mg/dL (75-99)
[2021-02-08 10:33] VITALS: BMI 36.0
--- NOTE | 2021-02-08 11:04 | P.DS ---
Providers Date of admission: 02/07/21 06:21 Attending physician: Esteban Gray Consults: 02/07/21 08:02 Consult Physician Stat Consulting Provider: Taylor Gross Reason/Comments: DKA ICU management Do you want consulting provider notified?: Yes Primary care physician: Physician Nonstaff Hospital Course: Refer to my history of present illness for further details Patient Condition at Discharge: Critical Plan - Discharge Summary Discharge Rx Participant: Yes New Discharge Prescriptions: Continue Simvastatin [Zocor] 40 mg PO DAILY Divalproex [Depakote] 500 mg PO BID Dextroamphetamine/Amphetamine [Adderall] 10 mg PO BID Albuterol Inhaler [Ventolin Hfa Inhaler] 2 puff INHALATION RT-QID PRN PRN Reason: Shortness Of Breath Carvedilol [Coreg] 25 mg PO BID QUEtiapine FUMARATE [SEROquel] 300 mg PO HS tiZANidine [Zanaflex] 4 mg PO Q6HR PRN PRN Reason: Spasms Sertraline HCl [Zoloft] 100 mg PO DAILY Levothyroxine Sodium 150 mcg PO DAILY Ergocalciferol (Vitamin D2) [Drisdol (50,000 Iu)] 1,250 mcg PO Q7D INSULIN LISPRO (For Pump) [humaLOG (For Pump)] 0.01 units SQ-PUMP CONTINUOUS HYDROmorphone HCL [Dilaudid] 8 mg PO TID PRN PRN Reason: Pain Gabapentin [Neurontin] 300 mg PO QID Enalapril [Vasotec] 10 mg PO BID Clopidogrel [Plavix] 75 mg PO DAILY Amitriptyline HCl [Elavil] 25 mg PO BID QUEtiapine [SEROquel] 50 mg PO BID Travoprost [Travoprost 0.004%] 1 drop BOTH EYES HS Discontinued Carvedilol [Coreg] 6.25 mg PO BID Discharge Medication List Albuterol Inhaler [Ventolin Hfa Inhaler] 2 puff INHALATION RT-QID PRN 02/07/21 [History] Clopidogrel [Plavix] 75 mg PO DAILY 02/07/21 [History] Dextroamphetamine/Amphetamine [Adderall] 10 mg PO BID 02/07/21 [History] Divalproex [Depakote] 500 mg PO BID 02/07/21 [History] Enalapril [Vasotec] 10 mg PO BID 02/07/21 [History] Ergocalciferol (Vitamin D2) [Drisdol (50,000 Iu)] 1,250 mcg PO Q7D 02/07/21 [History] Gabapentin [Neurontin] 300 mg PO QID 02/07/21 [History] HYDROmorphone HCL [Dilaudid] 8 mg PO TID PRN 02/07/21 [History] INSULIN LISPRO (For Pump) [humaLOG (For Pump)] 0.01 units SQ-PUMP CONTINUOUS 02/07/21 [History] Levothyroxine Sodium 150 mcg PO DAILY 02/07/21 [History] Sertraline HCl [Zoloft] 100 mg PO DAILY 02/07/21 [History] Simvastatin [Zocor] 40 mg PO DAILY 02/07/21 [History] Amitriptyline HCl [Elavil] 25 mg PO BID 02/08/21 [History] Carvedilol [Coreg] 25 mg PO BID 02/08/21 [History] QUEtiapine FUMARATE [SEROquel] 300 mg PO HS 02/08/21 [History] QUEtiapine [SEROquel] 50 mg PO BID 02/08/21 [History] Travoprost [Travoprost 0.004%] 1 drop BOTH EYES HS 02/08/21 [History] tiZANidine [Zanaflex] 4 mg PO Q6HR PRN 02/08/21 [History] Follow up Appointment(s)/Referral(s): Nonstaff,Physician [Primary Care Provider] - 3 Days Discharge Disposition: HOME SELF-CARE
--- NOTE | 2021-02-08 11:04 | P.HPIM ---
History of Present Illness Patient is a pleasant 50-year-old female came in with complaints of feeling weak tired and cannot get her sugars under control. Patient is found to be in diabetic acidosis and patient received the IV insulin as per protocol patient is still on IV insulin. Patient does use a insulin pump at home which appeared to be Marfan functioning. Patient doesn't have the supplies to fix a bump at this time. Patient blood sugars are under control and patient the anion gap resolved. Patient had multiple other provided abnormalities secondary to diverticular acidosis including the hyponatremia hyperkalemia severe anion gap metabolic acidosis and tachycardia secondary to dehydration and metabolic acidosis all of which resolved at this time. Patient had low-grade fever yesterday probably secondary to diverticular is doses no other evidence of infection at this time patient didn't receive any antibiotics white blood cell count was 14,000 which came down to 10,600 at this time. Patient denied any dysuria denied any cough chest x-ray did not show any pneumonia. Patient is clinically doing well will be discharged today patient will resume her pump at home patient will closely follow with her wrapper rewinder and primary care ph ysician as an outpatient. Patient appears to take around 37.5 mg of Coreg which she is very higher than her usual dose because of which I'm cutting down the Coreg to 25 mg twice a day until being seen by her ore crusher. REVIEW OF SYSTEMS: CONSTITUTIONAL: No fever, no malaise, no fatigue. HEENT: No recent visual problems or hearing problems. Denied any sore throat. CARDIOVASCULAR: No chest pain, orthopnea, PND, no palpitations, no syncope. PULMONARY: No shortness of breath, no cough, no hemoptysis. GASTROINTESTINAL: No diarrhea, no nausea, no vomiting, no abdominal pain. NEUROLOGICAL: No headaches, no weakness, no numbness. HEMATOLOGICAL: Denies any bleeding or petechiae. GENITOURINARY: Denies any burning micturition, frequency, or urgency. MUSCULOSKELETAL/RHEUMATOLOGICAL: Denies any joint pain, swelling, or any muscle pain. ENDOCRINE: Denies any polyuria or polydipsia. The rest of the 14-point review of systems is negative. PHYSICAL EXAMINATION: GENERAL: The patient is alert and oriented x3, not in any acute distress. Well developed, well nourished. HEENT: Pupils are round and equally reacting to light. EOMI. No scleral icterus. No conjunctival pallor. Normocephalic, atraumatic. No pharyngeal erythema. No thyromegaly. CARDIOVASCULAR: S1 and S2 present. No murmurs, rubs, or gallops. PULMONARY: Chest is clear to auscultation, no wheezing or crackles. ABDOMEN: Soft, nontender, nondistended, normoactive bowel sounds. No palpable organomegaly. MUSCULOSKELETAL: No joint swelling or deformity. EXTREMITIES: No cyanosis, clubbing, or pedal edema. NEUROLOGICAL: Gross neurological examination did not reveal any focal deficits. SKIN: No rashes. Assessment and plan -Diabetic ketoacidosis was on IV insulin improved the electrolyte abnormalities in improved anion gap metabolic acidosis and patient will be discharged today -Mild functioning insulin pump -Hypertension diabetes mellitus with uncontrolled blood sugars -diabetic Neuropathy -Essential hypertension -Hyperlipidemia -Carotid artery disease with stents in the past next and-diabetic retinopathy -Acute renal failure secondary to severe dehydration prerenal improved with IV fluids -Hyperosmolar hyponatremia secondary to elevated blood sugars and hypervolemic hyponatremia which resolved at this time next and-hyper kalemia secondary to metabolic acidosis which resolved at this time as well Have a leukocytosis and fever and systemic inflammatory response secondary to diverticular acidosis which improved at this time no evidence of infection at this point of time will not require any antibiotics. -Nicotine use: Counseling was provided Excessive counseling regarding her blood sugar control was provided and patient will be discharged to follow up with the PCP, endocrinology and cardiology as an outpatient. Past Medical History Past Medical History: Diabetes Mellitus Additional Past Medical History / Comment(s): Past medical history obtained from patient and her Son. Pt states she has chronic kidney disease stage 3, neuropathy, retinopathy, she has had a heart cath with a stent placed, and she has an insulin pump. Pts son states his mother has also had gastric bypass surgery. History of Any Multi-Drug Resistant Organisms: None Reported Past Surgical History: Bariatric Surgery, Heart Catheterization With Stent Past Anesthesia/Blood Transfusion Reactions: No Reported Reaction Date of Last Stent Placement:: patient is unsure, pts son is also unsure Smoking Status: Former smoker Medications and Allergies Home Medications Medication Instructions Recorded Confirmed Type Albuterol Inhaler [Ventolin Hfa 2 puff INHALATION RT-QID PRN 02/07/21 02/08/21 History Inhaler] Clopidogrel [Plavix] 75 mg PO DAILY 02/07/21 02/08/21 History Dextroamphetamine/Amphetamine 10 mg PO BID 02/07/21 02/08/21 History [Adderall] Divalproex [Depakote] 500 mg PO BID 02/07/21 02/08/21 History Enalapril [Vasotec] 10 mg PO BID 02/07/21 02/08/21 History Ergocalciferol (Vitamin D2) 1,250 mcg PO Q7D 02/07/21 02/08/21 History [Drisdol (50,000 Iu)] Gabapentin [Neurontin] 300 mg PO QID 02/07/21 02/08/21 History HYDROmorphone HCL [Dilaudid] 8 mg PO TID PRN 02/07/21 02/08/21 History INSULIN LISPRO (For Pump) [humaLOG 0.01 units SQ-PUMP CONTINUOUS 02/07/21 02/08/21 History (For Pump)] Levothyroxine Sodium 150 mcg PO DAILY 02/07/21 02/08/21 History Sertraline HCl [Zoloft] 100 mg PO DAILY 02/07/21 02/08/21 History Simvastatin [Zocor] 40 mg PO DAILY 02/07/21 02/08/21 History Amitriptyline HCl [Elavil] 25 mg PO BID 02/08/21 02/08/21 History Carvedilol [Coreg] 25 mg PO BID 02/08/21 02/08/21 History QUEtiapine FUMARATE [SEROquel] 300 mg PO HS 02/08/21 02/08/21 History QUEtiapine [SEROquel] 50 mg PO BID 02/08/21 02/08/21 History Travoprost [Travoprost 0.004%] 1 drop BOTH EYES HS 02/08/21 02/08/21 History tiZANidine [Zanaflex] 4 mg PO Q6HR PRN 02/08/21 02/08/21 History Allergies Allergy/AdvReac Type Severity Reaction Status Date / Time carbamazepine [From Tegretol] Allergy Rash/Hives Verified 02/07/21 07:39 codeine Allergy Rash/Hives Verified 02/07/21 07:39 morphine Allergy Rash/Hives Verified 02/07/21 07:39 Physical Exam Vitals: Vital Signs Temp Pulse Resp BP Pulse Ox 09/20/21 10:00 91 25 H 136/57 97 02/08/21 09:00 88 11 L 147/66 99 02/08/21 08:00 98.1 F 98 26 H 128/70 97 02/08/21 07:00 98 17 165/73 95 02/08/21 06:00 106 H 23 140/66 96 02/08/21 05:00 97 18 160/83 99 02/08/21 04:00 98.6 F 98 13 154/77 97 02/08/21 03:00 98 18 155/82 97 02/08/21 02:00 93 19 155/62 96 02/08/21 01:00 96 12 144/65 100 02/08/21 00:29 95 18 144/65 98 02/08/21 00:00 98.5 F 97 15 145/64 97 02/07/21 23:00 93 19 137/61 97 02/07/21 22:00 92 14 150/64 97 02/07/21 21:00 90 19 120/60 98 02/07/21 20:00 98.7 F 89 15 139/68 98 02/07/21 19:00 97 17 127/59 96 02/07/21 18:00 100 20 149/70 96 02/07/21 17:00 100 13 157/70 95 02/07/21 16:00 100.0 F H 101 H 12 152/65 95 02/07/21 15:00 100 25 H 154/69 96 02/07/21 14:00 98 17 154/71 96 02/07/21 13:00 98 16 159/71 97 02/07/21 12:00 99.2 F 105 H 19 158/71 96 Intake and Output 02/07/21 02/08/21 02/08/21 22:59 06:59 14:59 Intake Total 6545.421 7177.683 667.346 Output Total 800 550 200 Balance 462.190 810.683 467.346 Intake: IV 1200 1350 300 D5-0.45% NaCl with KCl 1200 1350 300 20Meq/l 1,000 ml @ 150 mls/hr IV .Q6H40M [facility] Rx# :[id number] Intake, IV Titration 62.190 10.683 17.346 Amount Insulin Regular 100 unit 62.190 10.683 17.346 In Sodium Chloride 0.9% 100 ml @ 0.1 UNITS/KG/HR 6.872 mls/hr IV .[id number] [facility] Rx#:[id number] Oral 350 Output: Urine 800 550 200 Other: Voiding Method Bedside Commode Bedside Commode Bedside Commode # Voids 2 0 2 # Bowel Movements 1 Weight 86.5 kg 86.5 kg Results CBC & Chem 7: 02/08/21 04:11 02/08/21 08:41 Labs: Abnormal Lab Results - Last 24 Hours (Table) 02/07/21 02/07/21 02/07/21 Range/Units 11:24 12:08 13:24 Sodium (137-145) mmol/L Potassium (3.5-5.1) mmol/L Chloride (98-107) mmol/L Carbon Dioxide (22-30) mmol/L BUN (7-17) mg/dL Creatinine (0.52-1.04) mg/dL Glucose (74-99) mg/dL POC Glucose (mg/dL) 244 H 248 H 210 H (75-99) mg/dL 02/07/21 02/07/21 02/07/21 Range/Units 14:21 15:16 17:01 Sodium (137-145) mmol/L Potassium (3.5-5.1) mmol/L Chloride (98-107) mmol/L Carbon Dioxide (22-30) mmol/L BUN (7-17) mg/dL Creatinine (0.52-1.04) mg/dL Glucose (74-99) mg/dL POC Glucose (mg/dL) 173 H 201 H 148 H (75-99) mg/dL 02/07/21 02/07/21 02/07/21 Range/Units 17:58 18:00 19:09 Sodium (137-145) mmol/L Potassium (3.5-5.1) mmol/L Chloride 108 H (98-107) mmol/L Carbon Dioxide 18 L (22-30) mmol/L BUN 39 H (7-17) mg/dL Creatinine 1.07 H (0.52-1.04) mg/dL Glucose 137 H (74-99) mg/dL POC Glucose (mg/dL) 122 H 104 H (75-99) mg/dL 02/07/21 02/07/21 02/07/21 Range/Units 19:56 21:18 22:22 Sodium 136 L (137-145) mmol/L Potassium 5.2 H (3.5-5.1) mmol/L Chloride 108 H (98-107) mmol/L Carbon Dioxide 19 L (22-30) mmol/L BUN 33 H (7-17) mg/dL Creatinine 1.05 H (0.52-1.04) mg/dL Glucose 181 H (74-99) mg/dL POC Glucose (mg/dL) 134 H 132 H (75-99) mg/dL 02/07/21 02/08/21 02/08/21 Range/Units 22:49 00:36 02:04 Sodium (137-145) mmol/L Potassium (3.5-5.1) mmol/L Chloride (98-107) mmol/L Carbon Dioxide (22-30) mmol/L BUN (7-17) mg/dL Creatinine (0.52-1.04) mg/dL Glucose (74-99) mg/dL POC Glucose (mg/dL) 176 H 243 H 301 H (75-99) mg/dL 02/08/21 02/08/21 02/08/21 Range/Units 03:01 03:57 04:11 Sodium 135 L (137-145) mmol/L Potassium (3.5-5.1) mmol/L Chloride 109 H (98-107) mmol/L Carbon Dioxide 16 L (22-30) mmol/L BUN 28 H (7-17) mg/dL Creatinine (0.52-1.04) mg/dL Glucose 238 H (74-99) mg/dL POC Glucose (mg/dL) 241 H 265 H (75-99) mg/dL 02/08/21 02/08/21 02/08/21 Range/Units 05:03 06:27 07:14 Sodium (137-145) mmol/L Potassium (3.5-5.1) mmol/L Chloride (98-107) mmol/L Carbon Dioxide (22-30) mmol/L BUN (7-17) mg/dL Creatinine (0.52-1.04) mg/dL Glucose (74-99) mg/dL POC Glucose (mg/dL) 212 H 164 H 178 H (75-99) mg/dL 02/08/21 02/08/21 02/08/21 Range/Units 08:14 08:41 09:02 Sodium (137-145) mmol/L Potassium (3.5-5.1) mmol/L Chloride 110 H (98-107) mmol/L Carbon Dioxide (22-30) mmol/L BUN 22 H (7-17) mg/dL Creatinine (0.52-1.04) mg/dL Glucose 168 H (74-99) mg/dL POC Glucose (mg/dL) 143 H 145 H (75-99) mg/dL 02/08/21 Range/Units 10:06 Sodium (137-145) mmol/L Potassium (3.5-5.1) mmol/L Chloride (98-107) mmol/L Carbon Dioxide (22-30) mmol/L BUN (7-17) mg/dL Creatinine (0.52-1.04) mg/dL Glucose (74-99) mg/dL POC Glucose (mg/dL) 200 H (75-99) mg/dL Thrombosis Risk Factor Assmnt - Choose All That Apply Each Factor Represents 1 point: Age 41-60 years, Obesity (BMI >25) Other congenital or acquired thrombophilia - If yes, enter type in comment: No Thrombosis Risk Factor Assessment Total Risk Factor Score: 2 Thrombosis Risk Factor Assessment Level: Low Risk
[2021-02-14] MEDS ORDERED: ERGOCALCIFEROL 1,250 MCG (50,000 IU) CAPSULE PO SCH (09:00)
== END 2021-02-08 12:45 | disposition home or self-care (01) | DRG 919 ==
LOC: EC 01:50 → 2SICU 06:21
PROVIDERS: ADMIT Hospitalist; ATTEND Hospitalist
DX: T85.694A Other mechanical complication of insulin pump, initial encounter (principal); E10.10 Type 1 diabetes mellitus with ketoacidosis without coma; N17.9 Acute kidney failure, unspecified; R65.10 Systemic inflammatory response syndrome (SIRS) of non-infectious origin without acute organ dysfunction; E03.9 Hypothyroidism, unspecified; E10.40 Type 1 diabetes mellitus with diabetic neuropathy, unspecified; E10.22 Type 1 diabetes mellitus with diabetic chronic kidney disease; E10.319 Type 1 diabetes mellitus with unspecified diabetic retinopathy without macular edema; E78.5 Hyperlipidemia, unspecified; E86.0 Dehydration; I12.9 Hypertensive chronic kidney disease with stage 1 through stage 4 chronic kidney disease, or unspecified chronic kidney disease; J45.909 Unspecified asthma, uncomplicated; N18.30 Chronic kidney disease, stage 3 unspecified; Z20.822 Contact with and (suspected) exposure to COVID-19; Z71.6 Tobacco abuse counseling; Z79.02 Long term (current) use of antithrombotics/antiplatelets; Z79.4 Long term (current) use of insulin; Z79.890 Hormone replacement therapy; Z79.899 Other long term (current) drug therapy; E87.5 Hyperkalemia; Z68.36 Body mass index [BMI] 36.0-36.9, adult; Z98.84 Bariatric surgery status; E66.9 Obesity, unspecified; Z87.891 Personal history of nicotine dependence; K57.90 Diverticulosis of intestine, part unspecified, without perforation or abscess without bleeding
CPT/HCPCS: 36415; 80048; 80051; 80053; 82009; 82565; 82803; 82947; 83735; 84100; 84520; 85025; 87635; 93005; 99285

== ENCOUNTER 2021-03-27 22:11 | Inpatient (IN) | payer MEDICARE, OTHER ==
[2021-03-27 22:37] LABS: Glucose,Whole Blood 324 mg/dL (75-99)
--- NOTE | 2021-03-27 22:40 | ED ---
Overdose HPI - General Stated Complaint: Mental Health Time Seen by Provider: 03/27/21 22:15 Source: patient, old records reviewed Mode of arrival: EMS Limitations: no limitations - History of Present Illness Initial Comments: This patient is a 51-year-old woman transferred here from [facility]. Patient had been taken there by ambulance after she had reportedly ta kirk 25 tablets of Depakote, 500 mg tablets. The patient had subsequently stated that she had just made up this to get attention from her son. When I interview the patient, she has no complaints. The patient's workup at the other facility did reveal an initial valproic acid level of 32, blood glucose of 667. The initial sodium was 127. The patient's case had been discussed with poison control and they had recommended that she be transferred here for a period of medical monitoring with a every 6-8 hour Depakote and ammonia levels performed and then the disposition per psychiatric evaluation. Complaint: other -: hour(s) Intent: suicide attempt How Overdose Was Discovered: family/friend present at time Context: Intentional Overdose: other Treatments Prior to Arrival: IV fluids - Related Data Home Medications Medication Instructions Recorded Confirmed Albuterol Inhaler [Ventolin Hfa 2 puff INHALATION RT-QID PRN 02/07/21 03/27/21 Inhaler] Clopidogrel [Plavix] 75 mg PO DAILY 02/07/21 03/27/21 Dextroamphetamine/Amphetamine 10 mg PO BID 02/07/21 03/27/21 [Adderall] Divalproex [Depakote] 500 mg PO BID 02/07/21 03/27/21 Enalapril [Vasotec] 10 mg PO BID 02/07/21 03/27/21 Ergocalciferol (Vitamin D2) 1,250 mcg PO Q7D 02/07/21 03/27/21 [Drisdol (50,000 Iu)] Gabapentin [Neurontin] 300 mg PO QID 02/07/21 03/27/21 HYDROmorphone HCL [Dilaudid] 8 mg PO TID PRN 02/07/21 03/27/21 INSULIN LISPRO (For Pump) [humaLOG 0.01 units SQ-PUMP CONTINUOUS 02/07/21 03/27/21 (For Pump)] Levothyroxine Sodium 150 mcg PO DAILY 02/07/21 03/27/21 Sertraline HCl [Zoloft] 100 mg PO DAILY 02/07/21 03/27/21 Simvastatin [Zocor] 40 mg PO DAILY 02/07/21 03/27/21 Amitriptyline HCl [Elavil] 25 mg PO BID 02/08/21 03/27/21 Carvedilol [Coreg] 25 mg PO BID 02/08/21 03/27/21 QUEtiapine FUMARATE [SEROquel] 300 mg PO HS 02/08/21 03/27/21 QUEtiapine [SEROquel] 50 mg PO BID 02/08/21 03/27/21 Travoprost [Travoprost 0.004%] 1 drop BOTH EYES HS 02/08/21 03/27/21 tiZANidine [Zanaflex] 4 mg PO Q6HR PRN 02/08/21 03/27/21 carvediloL [Coreg] 6.25 mg PO BID 03/27/21 03/27/21 Allergies Allergy/AdvReac Type Severity Reaction Status Date / Time carbamazepine [From Tegretol] Allergy Rash/Hives Verified 03/27/21 23:30 codeine Allergy Rash/Hives Verified 03/27/21 23:30 morphine Allergy Rash/Hives Verified 03/27/21 23:30 Review of Systems ROS Statement: Those systems with pertinent positive or pertinent negative responses have been documented in the HPI. ROS Other: All systems not noted in ROS Statement are negative. Constitutional: Denies: fever, chills Eyes: Denies: vision change Respiratory: Denies: cough, dyspnea Cardiovascular: Denies: chest pain, palpitations, syncope Gastrointestinal: Denies: abdominal pain, vomiting, diarrhea Genitourinary: Denies: dysuria, frequency, hematuria Musculoskeletal: Denies: back pain Skin: Denies: rash Neurological: Denies: headache, weakness Psychiatric: Reports: as per HPI, anxiety, suicidal thoughts. Denies: auditory hallucinations, visual hallucinations, homicidal thoughts Past Medical History Past Medical History: Diabetes Mellitus Additional Past Medical History / Comment(s): Past medical history obtained from patient and her Son. Pt states she has chronic kidney disease stage 3, neuropathy, retinopathy, she has had a heart cath with a stent placed, and she has an insulin pump. Pts son states his mother has also had gastric bypass surgery. History of Any Multi-Drug Resistant Organisms: None Reported Past Surgical History: Bariatric Surgery, Heart Catheterization With Stent Past Anesthesia/Blood Transfusion Reactions: No Reported Reaction Date of Last Stent Placement:: patient is unsure, pts son is also unsure Smoking Status: Former smoker - Past Family History Mother History Unknown: Yes General Exam General appearance: alert, in no apparent distress Head exam: Present: atraumatic, normocephalic Eye exam: Present: normal appearance. Absent: scleral icterus, conjunctival injection ENT exam: Present: normal oropharynx Neck exam: Present: normal inspection Respiratory exam: Present: normal lung sounds bilaterally. Absent: respiratory distress, wheezes, rales, rhonchi, stridor Cardiovascular Exam: Present: regular rate, normal rhythm, normal heart sounds. Absent: systolic murmur, diastolic murmur, rubs, gallop GI/Abdominal exam: Present: soft. Absent: distended, tenderness, guarding, rebound, rigid Extremities exam: Present: normal inspection, normal capillary refill. Absent: pedal edema, calf tenderness Back exam: Present: normal inspection. Absent: CVA tenderness (R), CVA tenderness (L) Neurological exam: Present: alert Psychiatric exam: Absent: agitated, anxious, flat affect, manic, homicidal ideation, suicidal ideation Skin exam: Present: warm, dry, intact, normal color. Absent: rash Course Vital Signs 03/27/21 03/27/21 03/28/21 22:27 23:37 01:00 EDT Temperature 98.6 F Pulse Rate 100 88 96 Pulse Rate [ Pulse Oximetery ] Respiratory 16 20 20 Rate Blood Pressure 184/114 155/82 161/92 Blood Pressure [Left Arm] O2 Sat by Pulse 100 95 95 Oximetry 03/28/21 03/28/21 03/28/21 04:00 06:00 08:00 Temperature 98.7 F Pulse Rate 102 H Pulse Rate [ 205 H 101 H Pulse Oximetery ] Respiratory 16 18 Rate Blood Pressure 148/72 Blood Pressure 146/81 148/81 [Left Arm] O2 Sat by Pulse 98 98 Oximetry 03/28/21 12:00 Temperature Pulse Rate Pulse Rate [ 105 H Pulse Oximetery ] Respiratory Rate Blood Pressure Blood Pressure 163/72 [Left Arm] O2 Sat by Pulse 95 Oximetry Medical Decision Making - Lab Data Lab Results 03/27/21 03/27/21 03/27/21 Range/Units 22:36 22:56 22:59 POC Glucose (mg/dL) 324 H (75-99) mg/dL POC [employer] Design Engineer ID Lory Diego Urine Opiates Screen Not Detected (NotDetected) Ur Oxycodone Screen Not Detected (NotDetected) Urine Methadone Screen Not Detected (NotDetected) Ur Propoxyphene Screen Not Detected (NotDetected) Ur Barbiturates Screen Not Detected (NotDetected) Valproic Acid 536.9 H* ug/mL U Tricyclic Antidepress Detected H (NotDetected) Ur Phencyclidine Scrn Not Detected (NotDetected) Ur Amphetamines Screen Not Detected (NotDetected) U Methamphetamines Scrn Not Detected (NotDetected) U Benzodiazepines Scrn Detected H (NotDetected) Urine Cocaine Screen Not Detected (NotDetected) U Marijuana (THC) Screen Not Detected (NotDetected) Disposition Clinical Impression: Overdose Disposition: ADMITTED IP TO THIS [facility] Condition: Undetermined
[2021-03-27 23:55] LABS: Amphetamine Screen,Urine Not Detected (NotDetected); Barbiturate Screen,Urine Not Detected (NotDetected); Benzodiazepines Screen,Urine Detected (NotDetected); Cocaine Screen,Urine Not Detected (NotDetected); Methadone Screen, Urine Not Detected (NotDetected); Opiate Screen,Urine Not Detected (NotDetected); Oxycodone Screen, Urine Not Detected (NotDetected); Phencyclidine Screen,Urine Not Detected (NotDetected); Tricyclic Antidepressant,Urine Detected (NotDetected); Urn Cannabinoid Scrn Not Detected (NotDetected)
[2021-03-28] MEDS ORDERED: NALOXONE 0.4 MG/ML 1 ML VIAL IV PRN (01:08)
[2021-03-28] MEDS ORDERED: SODIUM CHLORIDE 0.9% 1,000 ML IV SCH (01:15)
[2021-03-28 06:30] VITALS: RESP 18; TEMP 98.7
[2021-03-28 06:40] LABS: Glucose,Whole Blood 76 mg/dL (75-99)
[2021-03-28] MEDS: INSULIN ASPART (NovoLOG) 100 UNIT/ML VIAL SQ SCH ×2 (06:56→14:02)
[2021-03-28] MEDS ORDERED: INSULIN LISPRO (For Pump) 100 UNIT/ML VIAL SQ-PUMP SCH (11:15)
[2021-03-28 11:40] LABS: Glucose,Whole Blood 249 mg/dL (75-99)
[2021-03-28 12:26] VITALS: BP 163/72; PULSE 105
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
[2021-03-28] MEDS ORDERED: lisinopriL 20 MG TAB PO SCH (21:00)
[2021-03-28] MEDS ORDERED: LATANOPROST 0.005% OPHTH DROPS 2.5 ML BTL BOTH EYES SCH (21:00)
[2021-03-29] MEDS ORDERED: LEVOTHYROXINE 75 MCG TAB PO SCH (06:30)
[2021-03-29] MEDS ORDERED: CLOPIDOGREL 75 MG TAB PO SCH (09:00)
== END 2021-03-28 14:26 | disposition left against medical advice (07) | DRG 918 ==
LOC: EC 22:11 → 3SCARD 03-28 01:08
PROVIDERS: ADMIT Internal Medicine; ATTEND Internal Medicine
DX: T42.6X2A Poisoning by other antiepileptic and sedative-hypnotic drugs, intentional self-harm, initial encounter (principal); E11.22 Type 2 diabetes mellitus with diabetic chronic kidney disease; N18.30 Chronic kidney disease, stage 3 unspecified; E11.42 Type 2 diabetes mellitus with diabetic polyneuropathy; F31.9 Bipolar disorder, unspecified; E11.319 Type 2 diabetes mellitus with unspecified diabetic retinopathy without macular edema; Z20.822 Contact with and (suspected) exposure to COVID-19; Z79.02 Long term (current) use of antithrombotics/antiplatelets; Z79.4 Long term (current) use of insulin; Z79.890 Hormone replacement therapy; Z87.891 Personal history of nicotine dependence; Z96.41 Presence of insulin pump (external) (internal); Z88.5 Allergy status to narcotic agent; Z88.8 Allergy status to other drugs, medicaments and biological substances; Z95.5 Presence of coronary angioplasty implant and graft
CPT/HCPCS: 36415; 80164; 80306; 82075; 82140; 87635; 99285

== ENCOUNTER 2024-03-13 18:11 | Inpatient (IN) | payer MEDICARE, OTHER ==
[2024-03-13 18:31] LABS: Glucose,Whole Blood 575 mg/dL (70-110)
[2024-03-13] MEDS: SODIUM CHLORIDE 0.9% 1,000 ML IV SCH (18:40)
[2024-03-13] MEDS: INSULIN REGULAR 100 UNIT in SODIUM CHLORIDE 0.9% 100 ML IV SCH (18:50)
[2024-03-13 19:06] LABS: Basophils % (A) 0 %; Eosinophils % (A) 0 %; HCT 39.3 % (34.0-46.0); HGB 11.6 gm/dL (11.4-16.0); Hypochromasia Marked; Lymphocytes # (A) 1.4 k/uL (1.0-4.8); Lymphocytes % (A) 12 %; MCH 30.1 pg (25.0-35.0); MCHC 29.4 g/dL (31.0-37.0); MCV 102.3 fL (80.0-100.0); Macrocytosis Slight; Mean Platelet Volume 10.5; Monocytes % (A) 8 %; Neutrophils # (A) 9.4 k/uL (1.3-7.7); Neutrophils % (A) 79 %; Platelet Count 193 k/uL (150-450); RBC 3.85 m/uL (3.80-5.40); RDW 12.6 % (11.5-15.5); WBC 11.9 k/uL (3.8-10.6)
--- NOTE | 2024-03-13 19:23 | ED ---
Altered Mental Status HPI - General Chief Complaint: Altered Mental Status Stated Complaint: DKA Time Seen by Provider: 03/13/24 18:30 Source: EMS Mode of arrival: EMS - History of Present Illness Initial Comments: 53-year-old female presents to the emergency department as a transfer from [facility]. Patient was taken into their facility for altered mental status and found to be in DKA. Son who is the patient's caregiver had reported that her insulin pump was not working for 24 hours. According to the EMS report the patient was altered. Patient was given 2 L of normal saline and started on an insulin drip. The emergency physician found that the patient had an abnormal UA consistent with UTI. She was also given 1 g of Rocephin and an amp of bicarb glucose was 703. pH is 6.9. Lactic acid 3.9. Creatinine 1.6. Potassium 5.8. Anion gap of 40 with a CO2 of 4. Patient cannot provide much history due to her altered mental status - Related Data Home Medications Medication Instructions Recorded Confirmed Clopidogrel [Plavix] 75 mg PO DAILY 02/07/21 03/13/24 Enalapril [Vasotec] 10 mg PO DAILY 02/07/21 03/13/24 INSULIN LISPRO (For Pump) [humaLOG 0.01 units SQ-PUMP CONTINUOUS 02/07/21 03/13/24 (For Pump)] Sertraline HCl [Zoloft] 100 mg PO BID 02/07/21 03/13/24 Simvastatin [Zocor] 40 mg PO HS 02/07/21 03/13/24 QUEtiapine [SEROquel] 50 mg PO BID 02/08/21 03/13/24 Cephalexin [Keflex] 500 mg PO QID 03/13/24 03/13/24 Cyclobenzaprine [Flexeril] 5 mg PO BID 03/13/24 03/13/24 Divalproex ER [Depakote ER] 500 mg PO BID 03/13/24 03/13/24 Insulin Glargine,Hum.rec.anlog 24 units SQ DAILY PRN 03/13/24 03/13/24 [Lantus Solostar Pen] Levothyroxine Sodium [Synthroid] 175 mcg PO DAILY 03/13/24 03/13/24 Morphine Sulfate Ir [MSIR] 15 mg PO Q4-6H MDD 5 tabs daily 03/13/24 03/13/24 Phenazopyridine [Pyridium] 200 mg PO TID PRN 03/13/24 03/13/24 QUEtiapine [SEROquel] 400 mg PO HS 03/13/24 03/13/24 carvediloL [Coreg] 12.5 mg PO BID-W/MEALS 03/13/24 03/13/24 hydrOXYzine HCL [Atarax] 50 mg PO BID 03/13/24 03/13/24 Allergies Allergy/AdvReac Type Severity Reaction Status Date / Time carbamazepine [From Tegretol] Allergy Rash/Hives Verified 03/13/24 18:27 codeine Allergy Rash/Hives Verified 03/13/24 18:27 morphine Allergy Rash/Hives Verified 03/13/24 20:31 Review of Systems ROS Statement: Those systems with pertinent positive or pertinent negative responses have been documented in the HPI. ROS Other: All systems not noted in ROS Statement are negative. Past Medical History Past Medical History: Diabetes Mellitus Additional Past Medical History / Comment(s): Past medical history obtained from patient and her Son. Pt states she has chronic kidney disease stage 3, neuropathy, retinopathy, she has had a heart cath with a stent placed, and she has an insulin pump. Pts son states his mother has also had gastric bypass surgery. History of Any Multi-Drug Resistant Organisms: None Reported Past Surgical History: Bariatric Surgery, Heart Catheterization With Stent Additional Past Surgical History / Comment(s): eye surgery, right knee surgery Past Anesthesia/Blood Transfusion Reactions: No Reported Reaction Date of Last Stent Placement:: patient is unsure, pts son is also unsure Past Psychological History: Depression Smoking Status: Former smoker - Past Family History Mother History Unknown: Yes General Exam Limitations: altered mental status General appearance: alert, lethargic Head exam: Present: atraumatic, normocephalic, normal inspection Eye exam: Present: normal appearance, PERRL, EOMI. Absent: scleral icterus, conjunctival injection, periorbital swelling ENT exam: Present: normal exam, mucous membranes dry Respiratory exam: Present: normal lung sounds bilaterally, other (Tachypnea). Absent: respiratory distress, wheezes, rales, rhonchi, stridor Cardiovascular Exam: Present: normal rhythm, tachycardia GI/Abdominal exam: Present: soft, normal bowel sounds. Absent: distended, tenderness, guarding, rebound, rigid Extremities exam: Present: normal inspection, full ROM, normal capillary refill. Absent: tenderness, pedal edema, joint swelling, calf tenderness Neurological exam: Present: altered Skin exam: Present: warm, dry, intact, normal color. Absent: rash Course Vital Signs 03/13/24 03/13/24 03/13/24 18:14 19:12 19:34 Temperature 97 F L Pulse Rate 135 H 131 H 132 H Pulse Rate [ Bilateral Radial] Respiratory 32 H 34 H 29 H Rate Blood Pressure 125/74 111/64 125/52 O2 Sat by Pulse 99 100 100 Oximetry 03/13/24 03/13/24 03/13/24 19:56 20:00 21:00 Temperature Pulse Rate 131 H 133 H 130 H Pulse Rate [ Bilateral Radial] Respiratory 31 H 25 H 21 Rate Blood Pressure 129/85 129/85 O2 Sat by Pulse 100 100 100 Oximetry 03/13/24 03/13/24 03/14/24 22:00 23:00 00:00 Temperature Pulse Rate 130 H 126 H 121 H Pulse Rate [ 118 H Bilateral Radial] Respiratory 25 H 22 18 Rate Blood Pressure 133/56 136/58 136/61 O2 Sat by Pulse 100 100 99 Oximetry 03/14/24 00:05 Temperature 98.6 F Pulse Rate 120 H Pulse Rate [ Bilateral Radial] Respiratory 20 Rate Blood Pressure 143/61 O2 Sat by Pulse Oximetry Medical Decision Making - Medical Decision Making Was pt. sent in by a medical professional or institution (, PA, HARDBOARD PRESS OPERATOR, urgent care, hospital, or care home...) When possible be specific @ -Patient sent from [facility] Did you speak to anyone other than the patient for history (EMS, parent, family, police, friend...)? What history was obtained from this source @ -Spoke with EMS and transferring physician for history Did you review nursing and triage notes (agree or disagree)? Why? @ -I reviewed and agree with nursing and triage notes Were old charts reviewed (outside hosp., previous admission, EMS record, old EKG, old radiological studies, urgent care reports/EKG's, care home records)? Report findings @ -I reviewed the transfer chart from [facility] Differential Diagnosis (chest pain, altered mental status, abdominal pain women, abdominal pain men, vaginal bleeding, weakness, fever, dyspnea, syncope, headache, dizziness, GI bleed, back pain, seizure, CVA, palpatations, mental health, musculoskeletal)? @ -Differential Altered Mental Status: Hypoglycemia, DKA, hypercapnia, ETOH, overdose, CO poisoning, trauma, myxedema coma, HTN encephalopathy, infection, encephalitis, psychosis, intercranial hemorrhage, hepatic encephalopathy, meningitis, CVA, this is not meant to be an all-inclusive list EKG interpreted by me (3pts min.). @ -Yes and demonstrates sinus tachycardia with a rate of 131. NJ interval 185. QRS 102. QTc of 459. No acute ST segment elevations or depressions X-rays interpreted by me (1pt min.). @ -None done CT interpreted by me (1pt min.). @ -Yes and demonstrates no acute intracranial process U/S interpreted by me (1pt. min.). @ -None done What testing was considered but not performed or refused? (CT, X-rays, U/S, labs)? Why? @ -None What meds were considered but not given or refused? Why? @ -None Did you discuss the management of the patient with other professionals (professionals i.e. , PA, HARDBOARD PRESS OPERATOR, lab, RT, psych nurse, clinical social work aide, accident report clerk, teacher, gunnery/ordnance officer, director of casework department)? Give summary @ -Spoke with Dr. Gross from ICU. Also spoke with Dr. Rivero for admission Was smoking cessation discussed for >3mins.? @ -No Was critical care preformed (if so, how long)? @ -Yes, 35 minutes for management of insulin drip for DKA Were there social determinants of health that impacted care today? How? (Homelessness, low income, unemployed, alcoholism, drug addiction, transportation, low edu. Level, literacy, decrease access to med. care, residential, rehab)? @ -No Was there de-escalation of care discussed even if they declined (Discuss DNR or withdrawal of care, Hospice)? DNR status @ -No What co-morbidities impacted this encounter? (DM, HTN, Smoking, COPD, CAD, Cancer, CVA, ARF, Chemo, Hep., AIDS, mental health diagnosis, sleep apnea, morbid obesity)? @ -Diabetes mellitus Was patient admitted / discharged? Hospital course, mention meds given and route, prescriptions, significant lab abnormalities, going to OR and other pe rtinent info. @ -Upon arrival patient seen and evaluated in room 20. Thorough history and physical exam was performed. I did review the transfer packet. I did continue the patient's insulin drip. I did add on a CT of the brain because the patient's altered mental status which the son states is changed from her baseline. CT negative for acute process. Spoke with Dr. Rivero for the admission. Spoke with Dr. Sloan for the admission to the ICU Undiagnosed new problem with uncertain prognosis? @ -No Drug Therapy requiring intensive monitoring for toxicity (Heparin, Nitro, Insulin, Cardizem)? @ -Insulin Were any procedures done? @ -No Diagnosis/symptom? @ -Acute encephalopathy, acute DKA, history of diabetes mellitus Acute, or Chronic, or Acute on Chronic? @ -Acute Uncomplicated (without systemic symptoms) or Complicated (systemic symptoms)? @ -Complicated Side effects of treatment? @ -No Exacerbation, Progression, or Severe Exacerbation? @ -No Poses a threat to life or bodily function? How? (Chest pain, [place], RI, pneumonia, PE, COPD, DKA, ARF, appy, cholecystitis, CVA, Diverticulitis, Homicidal, Suicidal, threat to staff... and all critical care pts) @ -Yes as patient does have a pH of 6.9 - Lab Data Result diagrams: 03/15/24 07:15 03/15/24 07:15 Lab Results 03/13/24 03/13/24 03/13/24 Range/Units 18:25 18:48 19:09 WBC 11.9 H (3.8-10.6) k/uL RBC 3.85 (3.80-5.40) m/uL Hgb 11.6 (11.4-16.0) gm/dL Hct 39.3 (34.0-46.0) % MCV 102.3 H (80.0-100.0) fL MCH 30.1 (25.0-35.0) pg MCHC 29.4 L (31.0-37.0) g/dL RDW 12.6 (11.5-15.5) % Plt Count 193 (150-450) k/uL MPV 10.5 Neutrophils % 79 % Lymphocytes % 12 % Monocytes % 8 % Eosinophils % 0 % Basophils % 0 % Neutrophils # 9.4 H (1.3-7.7) k/uL Lymphocytes # 1.4 (1.0-4.8) k/uL Monocytes # 1.0 (0-1.0) k/uL Eosinophils # 0.0 (0-0.7) k/uL Basophils # 0.0 (0-0.2) k/uL Hypochromasia Marked Macrocytosis Slight Sodium 142 (137-145) mmol/L Potassium 4.6 (3.5-5.1) mmol/L Chloride 108 H (98-107) mmol/L Carbon Dioxide <5 L* (22-30) mmol/L Anion Gap mmol/L BUN 27 H (7-17) mg/dL Creatinine 1.80 H (0.52-1.04) mg/dL Est GFR (CKD-EPI)AfAm 37 (>60 ml/min/1.73 sqM) Est GFR (CKD-EPI)NonAf 32 (>60 ml/min/1.73 sqM) Glucose 499 H (74-99) mg/dL POC Glucose (mg/dL) 575 H* (70-110) mg/dL POC Glu Credit Investigator ID Behzad Hung Calcium 7.8 L (8.4-10.2) mg/dL Phosphorus (2.5-4.5) mg/dL Total Bilirubin 0.4 (0.2-1.3) mg/dL AST 18 (14-36) U/L ALT 14 (4-34) U/L Alkaline Phosphatase 80 (38-126) U/L Total Protein 6.1 L (6.3-8.2) g/dL Albumin 3.3 L (3.5-5.0) g/dL 03/13/24 03/13/24 03/13/24 Range/Units 20:00 20:22 20:22 WBC (3.8-10.6) k/uL RBC (3.80-5.40) m/uL Hgb (11.4-16.0) gm/dL Hct (34.0-46.0) % MCV (80.0-100.0) fL MCH (25.0-35.0) pg MCHC (31.0-37.0) g/dL RDW (11.5-15.5) % Plt Count (150-450) k/uL MPV Neutrophils % % Lymphocytes % % Monocytes % % Eosinophils % % Basophils % % Neutrophils # (1.3-7.7) k/uL Lymphocytes # (1.0-4.8) k/uL Monocytes # (0-1.0) k/uL Eosinophils # (0-0.7) k/uL Basophils # (0-0.2) k/uL Hypochromasia Macrocytosis Sodium 142 (137-145) mmol/L Potassium 4.7 (3.5-5.1) mmol/L Chloride 106 (98-107) mmol/L Carbon Dioxide <5 L* (22-30) mmol/L Anion Gap mmol/L BUN 29 H (7-17) mg/dL Creatinine 1.99 H (0.52-1.04) mg/dL Est GFR (CKD-EPI)AfAm 33 (>60 ml/min/1.73 sqM) Est GFR (CKD-EPI)NonAf 28 (>60 ml/min/1.73 sqM) Glucose 477 H (74-99) mg/dL POC Glucose (mg/dL) 458 H (70-110) mg/dL POC Glu Credit Investigator ID Everton Wallace Calcium (8.4-10.2) mg/dL Phosphorus 5.9 H (2.5-4.5) mg/dL Total Bilirubin (0.2-1.3) mg/dL AST (14-36) U/L ALT (4-34) U/L Alkaline Phosphatase (38-126) U/L Total Protein (6.3-8.2) g/dL Albumin (3.5-5.0) g/dL Disposition Clinical Impression: Diabetic ketoacidosis, Encephalopathy acute Disposition: ADMITTED IP TO THIS [facility] Condition: Serious Is patient prescribed a controlled substance at d/c from ED?: No Time of Disposition: 20:37 Decision to Admit Reason: Admit from EC Decision Date: 03/13/24 Decision Time: 20:37
[2024-03-13 19:29] LABS: ALT 14 U/L (4-34); African American GFR (CKD) 37 (>60 ml/min/1.73 sqM); Albumin 3.3 g/dL (3.5-5.0); Blood Urea Nitrogen 27 mg/dL (7-17); Calcium 7.8 mg/dL (8.4-10.2); Chloride 108 mmol/L (98-107); Glucose 499 mg/dL (74-99); Non-African American GFR(CKD) 32 (>60 ml/min/1.73 sqM); Sodium 142 mmol/L (137-145); Total Bilirubin 0.4 mg/dL (0.2-1.3); Total Protein 6.1 g/dL (6.3-8.2)
[2024-03-13 19:33] LABS: AST 18 U/L (14-36); Alkaline Phosphatase 80 U/L (38-126); Carbon Dioxide <5 mmol/L (22-30); Potassium 4.6 mmol/L (3.5-5.1)
--- NOTE | 2024-03-13 19:51 | CT ---
EXAMINATION TYPE: CT brain wo con CT DLP: 1213.4 mGycm, Automated exposure control for dose reduction was used. DATE OF EXAM: 03/13/2024 7:34 PM COMPARISON: None. CLINICAL INDICATION: Female, 53 years old with history of ams, Pt arrives with c/o altered mental sta tus and high blood sugars. TECHNIQUE: Brain: Axial CT images of the brain were obtained with coronal and sagittal reformats created and rev iewed. Contrast used: None. Oral contrast used: None. FINDINGS: Brain: Motion limits evaluation of the skull base. Extra-axial spaces: No abnormal extra-axial fluid collections. Ventricular system: Within normal limits Cerebral parenchyma: No acute intraparenchymal hemorrhage or mass effect. The adams-white junction is well differentiated. Cerebellum: Unremarkable. Mass effect: No evidence of midline shift. Intracranial vasculature: unremarkable Soft tissues: Normal. Calvarium/osseous structures: No depressed skull fracture. Paranasal sinuses and mastoid air cells: Mild scattered paranasal sinus disease. Visualized orbits: Orbital contents are intact. IMPRESSION: Motion limited exam, No acute intracranial process. [facility], , 03/13/2024 7:49 PM
[2024-03-13 20:01] LABS: Glucose,Whole Blood 458 mg/dL (70-110)
[2024-03-13] MEDS ORDERED: Potassium Replacement Protocol 1 EACH MISC MISCELLANE PRN (20:37)
[2024-03-13] MEDS ORDERED: NALOXONE 0.4 MG/ML 1 ML VIAL IV PRN (20:37)
[2024-03-13] MEDS ORDERED: Magnesium Replacement Protocol 1 EACH MISC MISCELLANE PRN (20:37)
[2024-03-13 20:56] LABS: African American GFR (CKD) 33 (>60 ml/min/1.73 sqM); Blood Urea Nitrogen 29 mg/dL (7-17); Chloride 106 mmol/L (98-107); Glucose 477 mg/dL (74-99); Non-African American GFR(CKD) 28 (>60 ml/min/1.73 sqM); Potassium 4.7 mmol/L (3.5-5.1); Sodium 142 mmol/L (137-145)
[2024-03-13 21:05] LABS: Carbon Dioxide <5 mmol/L (22-30)
[2024-03-13 21:07] LABS: Glucose,Whole Blood 406 mg/dL (70-110)
[2024-03-13 21:50] LABS: Amphetamine Screen,Urine Not Detected (NotDetected); Barbiturate Screen,Urine Not Detected (NotDetected); Benzodiazepines Screen,Urine Not Detected (NotDetected); Cocaine Screen,Urine Not Detected (NotDetected); Methadone Screen, Urine Not Detected (NotDetected); Opiate Screen,Urine Detected (NotDetected); Oxycodone Screen, Urine Not Detected (NotDetected); Phencyclidine Screen,Urine Not Detected (NotDetected); Tricyclic Antidepressant,Urine Detected (NotDetected); Urn Cannabinoid Scrn Not Detected (NotDetected)
--- NOTE | 2024-03-13 21:56 | P.HPIM ---
History of Present Illness H&P Date: 03/13/24 History of present illness; Patient is a 53-year-old female with history of diabetes mellitus type 1 who presents with new onset confusion. Patient was transferred from [facility] with limited information. Patient was given 2 L of normal saline and started on insulin drip, ER physician found abnormal UA consistent with UTI and she was given 1 g of Rocephin and an amp of bicarb. Glucose was 703, pH 6.9, lactic acid 3.9, anion gap of 40 with bicarb of 4. Baseline mentation unknown. Patient's son who is caregiver reported her insulin pump has not been working for last 24 hours. She reports no pain and states no known trauma or fall. Patient reports absence of fever, chills, weight loss, chest pain, palpitations, diaphoresis, dyspnea, cough, nausea, vomiting, constipation, diarrhea, abdominal pain, weakness, myalgia, dizziness, headache, and dysuria. Initial lab work done in the ER showed WBC 11.9, hemoglobin 11.6, platelets 193, sodium 142, potassium 4.6, chloride 108, bicarb less than 5, BUN 27, creatinine 1.80, glucose 499, calcium 7.8 EKG done in the ER independently interpreted showed heart rate of 131, no ST segment elevation or depression seen, no T-wave inversions seen. CT head done independently interpreted showed no acute intracranial process. Patient admitted to internal medicine service for treatment of DKA. REVIEW OF SYSTEMS: All Systems reviewed, pertinent positives and negatives noted in HPI. All other symptoms are negative. PHYSICAL EXAMINATION: Vitals reviewed GENERAL: No acute distress. Well developed, well nourished. Hoover catheter in place. HEENT: Pupils are round and equally reacting to light. EOMI. No scleral icterus. Normocephalic, atraumatic. No pharyngeal erythema. No thyromegaly. CARDIOVASCULAR: S1 and S2 present. No murmurs, rubs, or gallops. PULMONARY: Chest is clear to auscultation, no wheezing or crackles. ABDOMEN: Soft, nontender, nondistended, normoactive bowel sounds. No palpable organomegaly. MUSCULOSKELETAL: No apparent joint swelling and deformities. EXTREMITIES: Right forearm with external fixation. No apparent cyanosis, clubbing, or pedal edema. NEUROLOGICAL: Confused, Gross neurological examination did not reveal any focal deficits. SKIN: No apparent rashes, Patient oriented only to self, not answering questions appropriately Labs reviewed Imaging reviewed Assessment and plan Patient is a 53-year-old female with history of diabetes mellitus type 1 who is being treated for DKA. #Acute metabolic encephalopathy #Diabetic ketoacidosis #Diabetes mellitus, type I #High anion gap metabolic acidosis Continue D5 1/2 with KCl 150 mL/hr Potassium and magnesium replacement per protocol Give bicarb if pH <6.9 Continue insulin drip Continue monitoring phosphorus, BUN, creatinine, electrolytes, glucose every 4 hours Ordered HbA1c, and UDS #Leukocytosis, reactive Given Rocephin for possible UTI Repeat UA # Acute kidney injury, non-oliguric due to dehydration Previous baseline creatinine 0.84 on 01/2021 Continue IV fluids as above Repeat UA, urine creatinine, sodium, creatinine Order kidney bladder hold ROBIN inhibitor and avoid nephrotoxic medications Chronic Medical Conditions # Essential hypertension -Hold home medications, BP is WNL #Hyperlidemia - Resume home simvastatin 40 mg #Hypothyroidism - Resume home Synthroid 175 mcg #Anxiety/Depression - Resume home medication sertraline 100 mg #Insomnia Seroquel 400 mg nightly F: As above E: Replete as needed N: N.p.o. E: None DVT ppx: Subq Lovenox Code status: Full code Anticipated discharge place: Pending clinical course Anticipated discharge time: Pending clinical course Dictation was produced using [employer] dictation software. Please excuse any grammatical, word or spelling errors. Past Medical History Past Medical History: Diabetes Mellitus Additional Past Medical History / Comment(s): Past medical history obtained from patient and her Son. Pt states she has chronic kidney disease stage 3, neuropathy, retinopathy, she has had a heart cath with a stent placed, and she has an insulin pump. Pts son states his mother has also had gastric bypass surgery. History of Any Multi-Drug Resistant Organisms: None Reported Past Surgical History: Bariatric Surgery, Heart Catheterization With Stent Additional Past Surgical History / Comment(s): eye surgery, right knee surgery Past Anesthesia/Blood Transfusion Reactions: No Reported Reaction Date of Last Stent Placement:: patient is unsure, pts son is also unsure Past Psychological History: Depression Smoking Status: Former smoker - Past Family History Mother History Unknown: Yes Family Medical History: Unable to Obtain (due to mental status) Medications and Allergies Home Medications Medication Instructions Recorded Confirmed Type Clopidogrel [Plavix] 75 mg PO DAILY 02/07/21 03/13/24 History Enalapril [Vasotec] 10 mg PO DAILY 02/07/21 03/13/24 History INSULIN LISPRO (For Pump) [humaLOG 0.01 units SQ-PUMP CONTINUOUS 02/07/21 03/13/24 History (For Pump)] Sertraline HCl [Zoloft] 100 mg PO BID 02/07/21 03/13/24 History Simvastatin [Zocor] 40 mg PO HS 02/07/21 03/13/24 History QUEtiapine [SEROquel] 50 mg PO BID 02/08/21 03/13/24 History Cephalexin [Keflex] 500 mg PO QID 03/13/24 03/13/24 History Cyclobenzaprine [Flexeril] 5 mg PO BID 03/13/24 03/13/24 History Divalproex ER [Depakote ER] 500 mg PO BID 03/13/24 03/13/24 History Insulin Glargine,Hum.rec.anlog 24 units SQ DAILY PRN 03/13/24 03/13/24 History [Lantus Solostar Pen] Levothyroxine Sodium [Synthroid] 175 mcg PO DAILY 03/13/24 03/13/24 History Morphine Sulfate Ir [MSIR] 15 mg PO Q4-6H MDD 5 tabs daily 03/13/24 03/13/24 History Phenazopyridine [Pyridium] 200 mg PO TID PRN 03/13/24 03/13/24 History QUEtiapine [SEROquel] 400 mg PO HS 03/13/24 03/13/24 History carvediloL [Coreg] 12.5 mg PO BID-W/MEALS 03/13/24 03/13/24 History hydrOXYzine HCL [Atarax] 50 mg PO BID 03/13/24 03/13/24 History Allergies Allergy/AdvReac Type Severity Reaction Status Date / Time carbamazepine [From Tegretol] Allergy Rash/Hives Verified 03/13/24 18:27 codeine Allergy Rash/Hives Verified 03/13/24 18:27 morphine Allergy Rash/Hives Verified 03/13/24 20:31 Physical Exam Vitals: Vital Signs Temp Pulse Resp BP Pulse Ox 03/13/24 20:00 133 H 25 H 129/85 100 03/13/24 19:56 131 H 31 H 100 03/13/24 19:34 132 H 29 H 125/52 100 03/13/24 19:12 131 H 34 H 111/64 100 03/13/24 18:14 97 F L 135 H 32 H 125/74 99 Intake and Output 03/13/24 03/13/24 03/13/24 06:59 14:59 22:59 Other: Weight 76.4 kg Results CBC & Chem 7: 03/13/24 18:48 03/13/24 20:22 Labs: Abnormal Lab Results - Last 24 Hours (Table) 03/13/24 03/13/24 03/13/24 Range/Units 18:25 18:48 19:09 WBC 11.9 H (3.8-10.6) k/uL MCV 102.3 H (80.0-100.0) fL MCHC 29.4 L (31.0-37.0) g/dL Neutrophils # 9.4 H (1.3-7.7) k/uL Chloride 108 H (98-107) mmol/L Carbon Dioxide <5 L* (22-30) mmol/L BUN 27 H (7-17) mg/dL Creatinine 1.80 H (0.52-1.04) mg/dL Glucose 499 H (74-99) mg/dL POC Glucose (mg/dL) 575 H* (70-110) mg/dL Calcium 7.8 L (8.4-10.2) mg/dL Phosphorus (2.5-4.5) mg/dL Total Protein 6.1 L (6.3-8.2) g/dL Albumin 3.3 L (3.5-5.0) g/dL 03/13/24 03/13/24 03/13/24 Range/Units 20:00 20:22 20:22 WBC (3.8-10.6) k/uL MCV (80.0-100.0) fL MCHC (31.0-37.0) g/dL Neutrophils # (1.3-7.7) k/uL Chloride (98-107) mmol/L Carbon Dioxide <5 L* (22-30) mmol/L BUN 29 H (7-17) mg/dL Creatinine 1.99 H (0.52-1.04) mg/dL Glucose 477 H (74-99) mg/dL POC Glucose (mg/dL) 458 H (70-110) mg/dL Calcium (8.4-10.2) mg/dL Phosphorus 5.9 H (2.5-4.5) mg/dL Total Protein (6.3-8.2) g/dL Albumin (3.5-5.0) g/dL 03/13/24 Range/Units 21:05 WBC (3.8-10.6) k/uL MCV (80.0-100.0) fL MCHC (31.0-37.0) g/dL Neutrophils # (1.3-7.7) k/uL Chloride (98-107) mmol/L Carbon Dioxide (22-30) mmol/L BUN (7-17) mg/dL Creatinine (0.52-1.04) mg/dL Glucose (74-99) mg/dL POC Glucose (mg/dL) 406 H (70-110) mg/dL Calcium (8.4-10.2) mg/dL Phosphorus (2.5-4.5) mg/dL Total Protein (6.3-8.2) g/dL Albumin (3.5-5.0) g/dL
[2024-03-13] MEDS ORDERED: ACETAMINOPHEN TAB 325 MG TAB PO PRN (21:57)
[2024-03-13 22:06] LABS: Glucose,Whole Blood 369 mg/dL (70-110)
[2024-03-13] MEDS: SODIUM BICARB 8.4% 50 ML SYR (1 MEQ/ML) IV STA (22:33)
[2024-03-13 22:49] LABS: Appearance,Urine Clear (Clear); Bilirubin,Urine 1+ (Negative); Blood,Urine Negative (Negative); Color,Urine Yellow; Glucose,Urine (UA) 4+ (Negative); Leukocyte Esterase,Urine Negative (Negative); Nitrite,Urine Negative (Negative); PH, Urine 5.5 (5.0-8.0); Protein,Urine Trace (Negative); Specific Gravity,Urine 1.031 (1.001-1.035)
[2024-03-13 22:57] LABS: Glucose,Whole Blood 344 mg/dL (70-110)
[2024-03-13] MEDS: ATORVASTATIN 20 MG TAB PO SCH (22:57)
[2024-03-13] MEDS: QUEtiapine 400 MG TAB PO SCH (22:57)
[2024-03-13 23:06] LABS: Creatinine,Urine Random 49.1 mg/dL
[2024-03-13 23:45] LABS: Ketones,Urine 4+ (Negative)
[2024-03-14 00:50] LABS: Glucose,Whole Blood 225 mg/dL (70-110)
[2024-03-14] MEDS: D5-0.45% NACL WITH KCL 20MEQ/L 1,000 ML IV SCH (00:55)
[2024-03-14 00:59] LABS: Glucose,Whole Blood 172 mg/dL (70-110)
[2024-03-14 01:51] LABS: Glucose,Whole Blood 169 mg/dL (70-110)
[2024-03-14 02:59] LABS: Glucose,Whole Blood 141 mg/dL (70-110)
[2024-03-14 03:14] LABS: African American GFR (CKD) 41 (>60 ml/min/1.73 sqM); Anion Gap 19 mmol/L; Blood Urea Nitrogen 32 mg/dL (7-17); Carbon Dioxide 12 mmol/L (22-30); Chloride 112 mmol/L (98-107); Glucose 151 mg/dL (74-99); Non-African American GFR(CKD) 36 (>60 ml/min/1.73 sqM); Phosphorus 1.9 mg/dL (2.5-4.5); Potassium 3.7 mmol/L (3.5-5.1); Sodium 143 mmol/L (137-145)
[2024-03-14] MEDS ORDERED: Phosphorus Replacement Protoco 1 EACH MISC MISCELLANE PRN (03:38)
[2024-03-14 03:53] LABS: Glucose,Whole Blood 127 mg/dL (70-110)
[2024-03-14] MEDS: SODIUM PHOSPHATE 30 MMOL in DEXTROSE 5% IN WATER 250 ML IVPB ONE (04:01)
[2024-03-14 05:02] LABS: Glucose,Whole Blood 148 mg/dL (70-110)
--- NOTE | 2024-03-14 05:10 | P.CNPUL ---
History of Present Illness Consult date: 03/14/24 Requesting physician: Denise Whipple Reason for consult: other (DKA; ICU management) Chief complaint: Altered mental status, high blood sugars History of present illness: Patient is a 53-year-old female with past medical history significant for type 1 diabetes, insulin pump, chronic kidney disease, hypertension, hyperlipidemia, CAD with previous PCI/stenting, among other things. Patient was transferred from [facility] yesterday evening. She was found to have DKA. Presented with altered mental status, and she is currently a poor historian. Patient's son stated that her insulin pump had been malfunctioning for approximately 24 hours. Of note, patient recently treated outpatient for possible UTI. Patient is still in a state of diabetic ketoacidosis. Blood glucose was 499 on arrival to our facility, serum bicarb less than 5, anion gap unmeasurable, urine ketone positive. She is on the insulin protocol. She was just transition to D5W/0.45% saline/20 mEq of potassium at 150 mL/h. She appears confused, she is a poor historian. CBC: WBC count 11.9, hemoglobin 11.6, platelets 193. Most recent CMP: Sodium 142, potassium 4.7, chloride 106, serum bicarb less than 5, BUN 29, creatinine 1.99, glucose most recently 172. LFTs unremarkable. Urinalysis obtained at our facility not remarkable for infection. Urine toxicology screen positive for opiates and TCAs. Brain CT without contrast done on arrival did not show any acute intracranial hemorrhage, no midline shift or mass effect. Hemodynamics are currently stable. Not on any vasopressors. Remains tachycardic. Afebrile. DKA protocol continues. Past Medical History Past Medical History: Diabetes Mellitus Additional Past Medical History / Comment(s): Past medical history obtained from patient and her Son. Pt states she has chronic kidney disease stage 3, neuropathy, retinopathy, she has had a heart cath with a stent placed, and she has an insulin pump. Pts son states his mother has also had gastric bypass surgery. History of Any Multi-Drug Resistant Organisms: None Reported Past Surgical History: Bariatric Surgery, Heart Catheterization With Stent Additional Past Surgical History / Comment(s): eye surgery, right knee surgery Past Anesthesia/Blood Transfusion Reactions: No Reported Reaction Date of Last Stent Placement:: patient is unsure, pts son is also unsure Past Psychological History: Depression Smoking Status: Former smoker Past Alcohol Use History: None Reported Additional Past Alcohol Use History / Comment(s): Pts son states that his mother quit smoking 10 years ago Past Drug Use History: None Reported - Past Family History Mother History Unknown: Yes Medications and Allergies Home Medications Medication Instructions Recorded Confirmed Type Clopidogrel [Plavix] 75 mg PO DAILY 02/07/21 03/13/24 History Enalapril [Vasotec] 10 mg PO DAILY 02/07/21 03/13/24 History INSULIN LISPRO (For Pump) [humaLOG 0.01 units SQ-PUMP CONTINUOUS 02/07/21 03/13/24 History (For Pump)] Sertraline HCl [Zoloft] 100 mg PO BID 02/07/21 03/13/24 History Simvastatin [Zocor] 40 mg PO HS 02/07/21 03/13/24 History QUEtiapine [SEROquel] 50 mg PO BID 02/08/21 03/13/24 History Cephalexin [Keflex] 500 mg PO QID 03/13/24 03/13/24 History Cyclobenzaprine [Flexeril] 5 mg PO BID 03/13/24 03/13/24 History Divalproex ER [Depakote ER] 500 mg PO BID 03/13/24 03/13/24 History Insulin Glargine,Hum.rec.anlog 24 units SQ DAILY PRN 03/13/24 03/13/24 History [Lantus Solostar Pen] Levothyroxine Sodium [Synthroid] 175 mcg PO DAILY 03/13/24 03/13/24 History Morphine Sulfate Ir [MSIR] 15 mg PO Q4-6H MDD 5 tabs daily 03/13/24 03/13/24 History Phenazopyridine [Pyridium] 200 mg PO TID PRN 03/13/24 03/13/24 History QUEtiapine [SEROquel] 400 mg PO HS 03/13/24 03/13/24 History carvediloL [Coreg] 12.5 mg PO BID-W/MEALS 03/13/24 03/13/24 History hydrOXYzine HCL [Atarax] 50 mg PO BID 03/13/24 03/13/24 History Allergies Allergy/AdvReac Type Severity Reaction Status Date / Time carbamazepine [From Tegretol] Allergy Rash/Hives Verified 03/13/24 18:27 codeine Allergy Rash/Hives Verified 03/13/24 18:27 morphine Allergy Rash/Hives Verified 03/13/24 20:31 Physical Exam Vitals: Vital Signs Temp Pulse Pulse Resp BP Pulse Ox 03/14/24 00:00 121 H 118 H 18 136/61 99 03/13/24 23:00 126 H 22 136/58 100 03/13/24 22:00 130 H 25 H 133/56 100 03/13/24 21:00 130 H 21 129/85 100 03/13/24 20:00 133 H 25 H 129/85 100 03/13/24 19:56 131 H 31 H 100 03/13/24 19:34 132 H 29 H 125/52 100 03/13/24 19:12 131 H 34 H 111/64 100 03/13/24 18:14 97 F L 135 H 32 H 125/74 99 Intake and Output 03/13/24 03/13/24 03/14/24 14:59 22:59 06:59 Intake Total 800 200 Output Total 850 150 Balance -50 50 Intake: Intake, IV Titration 800 200 Amount Sodium Chloride 0.9% 1, 800 200 000 ml @ 200 mls/hr IV . Q5H REPLACED BY [facility] Rx#:[id number] Oral 0 Output: Urine 850 150 Other: Voiding Method Indwelling Catheter Weight 76.4 kg GENERAL EXAM: Alert, 53-year-old white female, no acute distress HEAD: Normocephalic and atraumatic EYES: Normal reaction of pupils, equal size. NOSE: Clear with pink turbinates. THROAT: No erythema or exudates. NECK: No masses, no JVD. CHEST: No chest wall deformity. LUNGS: Equal air entry with no crackles, wheeze, rhonchi or dullness. On room air. No conversational dyspnea or accessory muscle use.. CVS: S1 and S2 normal with no audible murmur, regular rhythm. No extra heart sounds. Tachycardic ABDOMEN: No hepatosplenomegaly, active bowel sounds, no guarding or rigidity. SPINE: No scoliosis or deformity SKIN: No rashes CENTRAL NERVOUS SYSTEM: No focal deficits, tone is normal in all 4 extremities. EXTREMITIES: There is no peripheral edema, clubbing, or cyanosis. Peripheral pulses are intact. Results - Laboratory Findings CBC and BMP: 03/13/24 18:48 03/14/24 01:34 Abnormal lab findings: Abnormal Labs 03/13/24 03/13/24 03/13/24 18:25 18:48 19:09 WBC 11.9 H MCV 102.3 H MCHC 29.4 L Neutrophils # 9.4 H Chloride 108 H Carbon Dioxide <5 L* BUN 27 H Creatinine 1.80 H Glucose 499 H POC Glucose (mg/dL) 575 H* Calcium 7.8 L Phosphorus Total Protein 6.1 L Albumin 3.3 L Urine Protein Urine Glucose (UA) Urine Ketones Urine Bilirubin Urine Opiates Screen U Tricyclic Antidepress 03/13/24 03/13/24 03/13/24 20:00 20:22 20:22 WBC MCV MCHC Neutrophils # Chloride Carbon Dioxide <5 L* BUN 29 H Creatinine 1.99 H Glucose 477 H POC Glucose (mg/dL) 458 H Calcium Phosphorus 5.9 H Total Protein Albumin Urine Protein Urine Glucose (UA) Urine Ketones Urine Bilirubin Urine Opiates Screen U Tricyclic Antidepress 03/13/24 03/13/24 03/13/24 20:52 21:05 21:59 WBC MCV MCHC Neutrophils # Chloride Carbon Dioxide BUN Creatinine Glucose POC Glucose (mg/dL) 406 H 369 H Calcium Phosphorus Total Protein Albumin Urine Protein Urine Glucose (UA) Urine Ketones Urine Bilirubin Urine Opiates Screen Detected H U Tricyclic Antidepress Detected H 03/13/24 03/13/24 03/14/24 22:05 22:54 00:12 WBC MCV MCHC Neutrophils # Chloride Carbon Dioxide BUN Creatinine Glucose POC Glucose (mg/dL) 344 H 225 H Calcium Phosphorus Total Protein Albumin Urine Protein Trace H Urine Glucose (UA) 4+ H Urine Ketones 4+ H Urine Bilirubin 1+ H Urine Opiates Screen U Tricyclic Antidepress 03/14/24 00:58 WBC MCV MCHC Neutrophils # Chloride Carbon Dioxide BUN Creatinine Glucose POC Glucose (mg/dL) 172 H Calcium Phosphorus Total Protein Albumin Urine Protein Urine Glucose (UA) Urine Ketones Urine Bilirubin Urine Opiates Screen U Tricyclic Antidepress Assessment and Plan Assessment: Acute diabetic ketoacidosis; CBG 499, serum bicarb less than 5, anion gap unmeasurable, urine ketone positive; possibly secondary to insulin pump malfunction, currently on DKA protocol Severe anion gap metabolic acidosis, secondary to above Altered mental status, suspect acute metabolic encephalopathy, secondary to DKA Type 1 diabetes mellitus, normally managed with insulin pump Severe dehydration Acute on chronic kidney disease, secondary to above Recent outpatient treatment UTI Hypertension History of hyperlipidemia History of coronary artery disease with previous PCI/stenting History of hypothyroidism History of depression/bipolar Plan: Patient's medications, labs, imaging reviewed Patient continues on DKA protocol Insulin infusing per protocol Fluid transitioned to D5W/0.45% / 20 mEq K at 150 mL/h Continue to monitor electrolytes per protocol Urinalysis unremarkable for UTI Will continue to monitor patient in the intensive care unit until DKA resolves I have personally seen and examined the patient, performed the documentation and the assessment and plan as written. Number of minutes spent on the visit:20 Time with Patient: Greater than 30
[2024-03-14 06:00] LABS: Glucose,Whole Blood 159 mg/dL (70-110)
[2024-03-14 06:00] LABS: Glucose,Whole Blood 260 mg/dL (70-110)
[2024-03-14] MEDS: LEVOTHYROXINE 88 MCG TAB PO SCH (06:36)
[2024-03-14 07:05] LABS: Glucose,Whole Blood 203 mg/dL (70-110)
[2024-03-14 07:22] LABS: African American GFR (CKD) 52 (>60 ml/min/1.73 sqM); Anion Gap 19 mmol/L; Blood Urea Nitrogen 32 mg/dL (7-17); Calcium 8.3 mg/dL (8.4-10.2); Carbon Dioxide 15 mmol/L (22-30); Chloride 113 mmol/L (98-107); Glucose 240 mg/dL (74-99); Non-African American GFR(CKD) 45 (>60 ml/min/1.73 sqM); Sodium 147 mmol/L (137-145)
[2024-03-14 07:23] LABS: Potassium 4.3 mmol/L (3.5-5.1)
[2024-03-14 08:26] LABS: Glucose,Whole Blood 220 mg/dL (70-110)
--- NOTE | 2024-03-14 08:47 | US ---
EXAMINATION TYPE: US kidneys/renal and bladder DATE OF EXAM: 03/14/2024 COMPARISON: NONE CLINICAL INDICATION: Female, 53 years old with history of STEFAN; Overdose - patient not able to give hi story or respond to questions TECHNIQUE: Grayscale and color Doppler imaging of the bilateral kidneys and urinary bladder: FINDINGS: EXAM MEASUREMENTS: Right Kidney: 10.4 x 4.8 x 5.4 cm Left Kidney: 9.6 x 5.9 x 5.3 cm Right Kidney: Round, centrally located hypoechoic area seen, ? cyst vs lesion vs prominent renal pelv is = 2.3 x 1.9 x 2.1 cm. No calyceal dilatation to suggest hydronephrosis. Left Kidney: Limited visualization, WNL as visualized Bladder: Not distended, Hoover noted within, WNL as visualized Bilateral Jets seen: Not able to assess due to Hoover Tech scanned left kidney first due to patient positioning IMPRESSION: 1. Limited detailed assessment due to patient body habitus. No hydronephrosis on either side. 2. A round centrally located hypoechoic area right kidney measures 2.3 cm. Possible parapelvic cyst. Low-level echo could be artifactual or could represent debris. Three-month follow-up ultrasound recom mended to exclude other lesion. 3. Hoover catheter present. [facility], , 03/14/2024 8:44 AM
[2024-03-14] MEDS ORDERED: PHENAZOPYRIDINE 200 MG TAB PO PRN (09:00)
[2024-03-14 09:04] LABS: Glucose,Whole Blood 235 mg/dL (70-110)
[2024-03-14] MEDS: DIVALPROEX ER 500 MG TAB.ER.24H PO SCH (09:22)
[2024-03-14] MEDS: CLOPIDOGREL 75 MG TAB PO SCH (09:22)
[2024-03-14] MEDS: SERTRALINE 100 MG TAB PO SCH (09:22)
[2024-03-14] MEDS: FAMOTIDINE 20 MG TAB PO SCH (09:22)
[2024-03-14] MEDS: ENOXAPARIN 40 MG/0.4 ML SYRINGE SQ SCH (09:22)
[2024-03-14] MEDS: CYCLOBENZAPRINE 5 MG TAB PO SCH (09:34)
[2024-03-14 10:09] LABS: Glucose,Whole Blood 246 mg/dL (70-110)
[2024-03-14 11:03] LABS: Glucose,Whole Blood 269 mg/dL (70-110)
[2024-03-14 11:34] VITALS: BMI 28.9
[2024-03-14 11:54] LABS: Glucose,Whole Blood 320 mg/dL (70-110)
[2024-03-14 13:03] LABS: Glucose,Whole Blood 267 mg/dL (70-110)
[2024-03-14 13:31] LABS: African American GFR (CKD) 68 (>60 ml/min/1.73 sqM); Anion Gap 12 mmol/L; Blood Urea Nitrogen 30 mg/dL (7-17); Calcium 8.4 mg/dL (8.4-10.2); Carbon Dioxide 17 mmol/L (22-30); Chloride 115 mmol/L (98-107); Glucose 258 mg/dL (74-99); Non-African American GFR(CKD) 59 (>60 ml/min/1.73 sqM); Potassium 3.7 mmol/L (3.5-5.1); Sodium 144 mmol/L (137-145)
[2024-03-14 13:32] LABS: Phosphorus 2.9 mg/dL (2.5-4.5)
[2024-03-14 13:36] LABS: Valproic Acid (Depakene) 24.1 ug/mL
[2024-03-14] MEDS: carvediloL 12.5 MG TAB PO SCH (13:55)
[2024-03-14 14:13] LABS: Glucose,Whole Blood 235 mg/dL (70-110)
[2024-03-14] MEDS ORDERED: HALOPERIDOL LACTATE 5 MG/ML 1 ML VIAL IM PRN (14:17)
--- NOTE | 2024-03-14 14:26 | P.CN ---
Psychiatric Consult - . Consult date: 03/14/24 Consult:: 03/14/24 13:35 IDENTIFYING DATA: This patient is a 53-year-old female, a she is single, she has 1 son, she lives with her son in an apartment. She collects Social Security REASON FOR REFERRAL: Psychiatry was consulted for altered mental status HISTORY OF PRESENT ILLNESS: The patient presented to the hospital initially on 03/13 as a transfer from [facility]. Patient apparently was admitted there for DKA and also altered mental status. Patient apparently was on the insulin pump however was not functioning for about 24 hours. She had evidence of a UTI on her urine analysis. CT scan of her brain is negative. Patient was transferred to [facility], currently in the ICU. Loom Control Chain Builder spoke with patient's nurse today claims that patient is bizarre at times, irritable and also is sleeping on and off during the day, impulsive at times. Loom Control Chain Builder attempted to speak with patient for the interview and evaluate her however she was sleeping and did not respond to automatic typewriter inspector did not follow any commands. She was not able to be awoken by automatic typewriter inspector or her son. Patient's son gave further details about patient states that she has been a type I diabetic since she was a child, claims that her blood sugars were getting high and then he states that "she could not give herself insulin anymore" and claims that she lost the ability to use her pump. He states that he called EMS to have her brought into the hospital. Claims that her sleep has been on and off appetite has been on and off. The rest of patient's psychiatric and social history was given by patient's son. PAST PSYCHIATRIC HISTORY: Patient has a a history of mood disorder, rule out bipolar disorder versus depressive disorder. Patient was currently on Seroquel and Zoloft. Patient denies any previous psychiatric hospitalizations. Patient does have psychiatric follow-up however he does not know where. Patient denies any history of suicide attempts in the past. Past Medical History: Diabetes Mellitus Additional Past Medical History / Comment(s): Past medical history obtained from patient and her Son. Pt states she has chronic kidney disease stage 3, neuropathy, retinopathy, she has had a heart cath with a stent placed, and she has an insulin pump. Pts son states his mother has also had gastric bypass surgery. History of Any Multi-Drug Resistant Organisms: None Reported Past Surgical History: Bariatric Surgery, Heart Catheterization With Stent Additional Past Surgical History / Comment(s): eye surgery, right knee surgery Past Anesthesia/Blood Transfusion Reactions: No Reported Reaction Date of Last Stent Placement:: patient is unsure, pts son is also unsure Past Psychological History: Depression Smoking Status: Former smoker ALLERGIES: as per EMR. CHEMICAL DEPENDENCY HISTORY: as per HPI. 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 Denies any legal history. Has 1 son, currently lives with her son in an apartment, she collects Social Security. MENTAL STATUS EXAM: General Appearance: Patient appears to be mildly overweight, stated age is somnolent,. Patient appears to have poor hygiene and grooming wearing hospital gown with poor eye contact. Behavior: Patient is calmly lying in bed without any agitated behavior. Somnolent, not cooperative. Speech: Unable to obtain Mood/Affect: Unable to obtain Suicidality/Homicidality: Unable to obtain Perceptions: Unable to obtain Though content/process: Unable to obtain Memory and concentration: Unable to assess Judgment and insight: Poor IMPRESSIONS: Delirium, etiology likely toxic-metabolic Mood disorder unspecified Nicotine dependence Diabetes mellitus PLAN: -At this time patient DOES NOT meet criteria for inpatient psychiatric admission. -Delirium precautions recommended with patient including - avoiding use of narcotics and INSPECTION SUPERVISOR sedatives, limit anticholinergic medications when possible, frequent re-orientation, minimize use of restraints, open window shades during the day and close them at night -Would recommend the following medication changes/additions: Discontinue Zoloft and Seroquel at this time. Seroquel is not a good option for this patient has it has a tendency to cause disruption in blood glucose levels and cause weight gain. Start Risperdal 1 mg twice daily for mood stabilization/psychosis/delirium. Melatonin 5 mg nightly for sleep. Added Haldol p.o. and IM as needed for agitation. Please avoid opiates and benzodiazepines as this will likely increase patient's confusion and delirium. -facility worker to provide patient with outpatient mental health/psychiatry resources for appropriate follow up upon discharge -Communicated plan to patient's nurse -Will continue to follow along -Please contact with any questions. 03/14/24 14:18
[2024-03-14 14:38] LABS: T4, Free (Free Thyroxine) 2.17 ng/dL (0.78-2.19)
--- NOTE | 2024-03-14 14:46 | P.CNNES ---
History of Present Illness Consult date: 03/14/24 Requesting physician: Maame Doherty Reason for Consult: ams History of Present Illness: This is a 53-year-old woman with history of nonepileptic seizure, type 1 diabetes melitis on insulin pump, mood disorder transferred from [facility] for escalation of care since the patient was found to be in DKA and has altered mental status. Some of the history was obtained from the patient son at bedside. According to the son it seems that the patient's insulin pump was malfunctioning and her sugars was elevated. She had a recent abnormal UA consistent with urinary tract infection and she is given Rocephin. Going to the son she has a history of nonepileptic seizure and he has not seen or have a seizure in a long period of time but she notified that she does have a history of seizure and it seems that she is on Depakote for mood. She is also on Seroquel. She is on Depakote 500 mg extended release twice daily. Per the nurse she is resistant on cooperating for the exam and the nurse feels there is some functional component. Patient is not cooperative for providing history. Some of the workup during this hospital visit consisted of: On presentation her POC glucose is 575, creatinine is 1.80, carbon oxide is less than 5, CT of the head is reported as mostly limited exam, no acute intracranial proc ess. I reviewed the CT and I agree that exam is limited because of motion artifact and there is no obvious acute or subacute ischemic stroke. Her sugar was in the 500s, slightly elevated creatinine. Her hemoglobin A1c is 9.5. Ritesh is less than 5. TSH is less than 0.015 and free T4 is 2.17. Urine drug screen is positive for TCA as well as opiate. Valproic acid is 24.1. Urinalysis is negative for underlying acute urinary tract infection Review of Systems Limited. Past Medical History Past Medical History: Diabetes Mellitus Additional Past Medical History / Comment(s): Past medical history obtained from patient and her Son. Pt states she has chronic kidney disease stage 3, neuropathy, retinopathy, she has had a heart cath with a stent placed, and she has an insulin pump. Pts son states his mother has also had gastric bypass surgery. History of Any Multi-Drug Resistant Organisms: None Reported Past Surgical History: Bariatric Surgery, Heart Catheterization With Stent Additional Past Surgical History / Comment(s): eye surgery, right knee surgery Past Anesthesia/Blood Transfusion Reactions: No Reported Reaction Date of Last Stent Placement:: patient is unsure, pts son is also unsure Past Psychological History: Depression Smoking Status: Former smoker Past Alcohol Use History: None Reported Additional Past Alcohol Use History / Comment(s): Pts son states that his mother quit smoking 10 years ago Past Drug Use History: None Reported - Past Family History Mother History Unknown: Yes Family Medical History: Unable to Obtain (due to mental status) Medications and Allergies Home Medications Medication Instructions Recorded Confirmed Type Clopidogrel [Plavix] 75 mg PO DAILY 02/07/21 03/13/24 History Enalapril [Vasotec] 10 mg PO DAILY 02/07/21 03/13/24 History INSULIN LISPRO (For Pump) [humaLOG 0.01 units SQ-PUMP CONTINUOUS 02/07/21 03/13/24 History (For Pump)] Sertraline HCl [Zoloft] 100 mg PO BID 02/07/21 03/13/24 History Simvastatin [Zocor] 40 mg PO HS 02/07/21 03/13/24 History QUEtiapine [SEROquel] 50 mg PO BID 02/08/21 03/13/24 History Cephalexin [Keflex] 500 mg PO QID 03/13/24 03/13/24 History Cyclobenzaprine [Flexeril] 5 mg PO BID 03/13/24 03/13/24 History Divalproex ER [Depakote ER] 500 mg PO BID 03/13/24 03/13/24 History Insulin Glargine,Hum.rec.anlog 24 units SQ DAILY PRN 03/13/24 03/13/24 History [Lantus Solostar Pen] Levothyroxine Sodium [Synthroid] 175 mcg PO DAILY 03/13/24 03/13/24 History Morphine Sulfate Ir [MSIR] 15 mg PO Q4-6H MDD 5 tabs daily 03/13/24 03/13/24 History Phenazopyridine [Pyridium] 200 mg PO TID PRN 03/13/24 03/13/24 History QUEtiapine [SEROquel] 400 mg PO HS 03/13/24 03/13/24 History carvediloL [Coreg] 12.5 mg PO BID-W/MEALS 03/13/24 03/13/24 History hydrOXYzine HCL [Atarax] 50 mg PO BID 03/13/24 03/13/24 History Allergies Allergy/AdvReac Type Severity Reaction Status Date / Time carbamazepine [From Tegretol] Allergy Rash/Hives Verified 03/13/24 18:27 codeine Allergy Rash/Hives Verified 03/13/24 18:27 morphine Allergy Rash/Hives Verified 03/13/24 20:31 Physical Examination - Vital Signs Vital Signs: Vital Signs Temp Pulse Pulse Resp BP Pulse Ox 03/14/24 13:30 114 H 15 144/63 100 03/14/24 13:00 107 H 15 144/63 100 03/14/24 12:30 112 H 18 144/63 99 03/14/24 12:00 113 H 26 H 96 03/14/24 11:30 106 H 14 100 03/14/24 11:00 111 H 16 99 03/14/24 10:30 112 H 10 L 100 03/14/24 10:00 110 H 20 137/95 99 03/14/24 09:30 111 H 40 H 137/95 99 03/14/24 09:00 111 H 9 L 145/66 98 03/14/24 08:30 112 H 18 145/66 98 03/14/24 08:00 98.2 F 107 H 16 143/56 99 03/14/24 07:30 111 H 15 143/56 100 03/14/24 07:00 110 H 15 143/56 99 03/14/24 06:30 112 H 11 L 140/60 99 03/14/24 06:00 109 H 14 140/60 98 03/14/24 05:30 112 H 15 135/65 100 03/14/24 05:00 113 H 18 135/65 100 03/14/24 04:30 112 H 7 L 132/55 100 03/14/24 04:00 98.2 F 114 H 118 H 18 132/55 100 03/14/24 03:30 117 H 14 133/55 100 03/14/24 03:00 115 H 17 133/55 99 03/14/24 02:30 115 H 17 157/63 99 03/14/24 02:00 116 H 16 143/60 100 03/14/24 01:30 116 H 16 143/60 100 03/14/24 01:00 117 H 16 139/58 100 03/14/24 00:30 117 H 18 139/58 100 03/14/24 00:05 98.6 F 120 H 20 143/61 03/14/24 00:00 121 H 118 H 18 136/61 99 03/13/24 23:00 126 H 22 136/58 100 03/13/24 22:00 130 H 25 H 133/56 100 03/13/24 21:00 130 H 21 129/85 100 03/13/24 20:00 133 H 25 H 129/85 100 03/13/24 19:56 131 H 31 H 100 03/13/24 19:34 132 H 29 H 125/52 100 03/13/24 19:12 131 H 34 H 111/64 100 03/13/24 18:14 97 F L 135 H 32 H 125/74 99 Intake and Output 03/13/24 03/14/24 03/14/24 22:59 06:59 14:59 Intake Total 800 2764.122 4275.896 Output Total 850 510 505 Balance -50 852.322 631.896 Intake: Intake, IV Titration 800 1095.179 7386.896 Amount D5-0.45% NaCl with KCl 900 1050 20Meq/l 1,000 ml @ 150 mls/hr IV .Q6H40M [facility] Rx# :[id number] Insulin Regular 100 unit 67.322 21.896 In Sodium Chloride 0.9% 100 ml @ 0.1 UNITS/KG/HR 7.716 mls/hr IV .Q13H6M [facility] Rx#:[id number] Sodium Chloride 0.9% 1, 800 200 000 ml @ 200 mls/hr IV . Q5H [facility] Rx#:[id number] Sodium Phosphate 30 mmol 195 65 In Dextrose 5% in Water 250 ml @ 65 mls/hr IVPB ONCE ONE Rx#:[id number] Oral 0 Output: Urine 850 510 505 Other: Voiding Method Indwelling Catheter Indwelling Catheter Weight 76.4 kg 78.9 kg 78.9 kg General: Lying in bed and does not appear in acute distress. Neuro: Very limited because of cooperation. Patient is drowsy is awake able to voice. After repeated questioning she stated her first name correctly. But she turns right and left upon examiner with her head. She is able to state current year after multiple questioning. No facial weakness from limited examination. She is able to track. No dysarthria from limited language. Motor very limited to assess individual muscle strength. Results - Laboratory Findings CBC and BMP: 03/13/24 18:48 03/14/24 13:11 Abnormal Lab Findings: Abnormal Labs 03/13/24 03/13/24 03/13/24 18:25 18:48 19:09 WBC 11.9 H MCV 102.3 H MCHC 29.4 L Neutrophils # 9.4 H Sodium Chloride 108 H Carbon Dioxide <5 L* BUN 27 H Creatinine 1.80 H Glucose 499 H POC Glucose (mg/dL) 575 H* Hemoglobin A1c Calcium 7.8 L Phosphorus Total Protein 6.1 L Albumin 3.3 L TSH Urine Protein Urine Glucose (UA) Urine Ketones Urine Bilirubin Urine Opiates Screen U Tricyclic Antidepress 03/13/24 03/13/24 03/13/24 20:00 20:22 20:22 WBC MCV MCHC Neutrophils # Sodium Chloride Carbon Dioxide <5 L* BUN 29 H Creatinine 1.99 H Glucose 477 H POC Glucose (mg/dL) 458 H Hemoglobin A1c Calcium Phosphorus 5.9 H Total Protein Albumin TSH Urine Protein Urine Glucose (UA) Urine Ketones Urine Bilirubin Urine Opiates Screen U Tricyclic Antidepress 03/13/24 03/13/24 03/13/24 20:52 21:05 21:59 WBC MCV MCHC Neutrophils # Sodium Chloride Carbon Dioxide BUN Creatinine Glucose POC Glucose (mg/dL) 406 H 369 H Hemoglobin A1c Calcium Phosphorus Total Protein Albumin TSH Urine Protein Urine Glucose (UA) Urine Ketones Urine Bilirubin Urine Opiates Screen Detected H U Tricyclic Antidepress Detected H 03/13/24 03/13/24 03/14/24 22:05 22:54 00:12 WBC MCV MCHC Neutrophils # Sodium Chloride Carbon Dioxide BUN Creatinine Glucose POC Glucose (mg/dL) 344 H 225 H Hemoglobin A1c Calcium Phosphorus Total Protein Albumin TSH Urine Protein Trace H Urine Glucose (UA) 4+ H Urine Ketones 4+ H Urine Bilirubin 1+ H Urine Opiates Screen U Tricyclic Antidepress 03/14/24 03/14/24 03/14/24 00:58 01:34 01:49 WBC MCV MCHC Neutrophils # Sodium Chloride 112 H Carbon Dioxide 12 L BUN 32 H Creatinine 1.64 H Glucose 151 H POC Glucose (mg/dL) 172 H 169 H Hemoglobin A1c Calcium Phosphorus 1.9 L Total Protein Albumin TSH Urine Protein Urine Glucose (UA) Urine Ketones Urine Bilirubin Urine Opiates Screen U Tricyclic Antidepress 03/14/24 03/14/24 03/14/24 02:58 03:52 05:01 WBC MCV MCHC Neutrophils # Sodium Chloride Carbon Dioxide BUN Creatinine Glucose POC Glucose (mg/dL) 141 H 127 H 148 H Hemoglobin A1c Calcium Phosphorus Total Protein Albumin TSH Urine Protein Urine Glucose (UA) Urine Ketones Urine Bilirubin Urine Opiates Screen U Tricyclic Antidepress 03/14/24 03/14/24 03/14/24 05:56 05:56 05:57 WBC MCV MCHC Neutrophils # Sodium 147 H Chloride 113 H Carbon Dioxide 15 L BUN 32 H Creatinine 1.36 H Glucose 240 H POC Glucose (mg/dL) 260 H Hemoglobin A1c 9.5 H Calcium 8.3 L Phosphorus Total Protein Albumin TSH Urine Protein Urine Glucose (UA) Urine Ketones Urine Bilirubin Urine Opiates Screen U Tricyclic Antidepress 03/14/24 03/14/24 03/14/24 05:59 07:03 08:24 WBC MCV MCHC Neutrophils # Sodium Chloride Carbon Dioxide BUN Creatinine Glucose POC Glucose (mg/dL) 159 H 203 H 220 H Hemoglobin A1c Calcium Phosphorus Total Protein Albumin TSH Urine Protein Urine Glucose (UA) Urine Ketones Urine Bilirubin Urine Opiates Screen U Tricyclic Antidepress 03/14/24 03/14/24 03/14/24 09:02 10:07 11:01 WBC MCV MCHC Neutrophils # Sodium Chloride Carbon Dioxide BUN Creatinine Glucose POC Glucose (mg/dL) 235 H 246 H 269 H Hemoglobin A1c Calcium Phosphorus Total Protein Albumin TSH Urine Protein Urine Glucose (UA) Urine Ketones Urine Bilirubin Urine Opiates Screen U Tricyclic Antidepress 03/14/24 03/14/24 03/14/24 11:52 13:01 13:11 WBC MCV MCHC Neutrophils # Sodium Chloride Carbon Dioxide BUN Creatinine Glucose POC Glucose (mg/dL) 320 H 267 H Hemoglobin A1c Calcium Phosphorus Total Protein Albumin TSH <0.015 L Urine Protein Urine Glucose (UA) Urine Ketones Urine Bilirubin Urine Opiates Screen U Tricyclic Antidepress 03/14/24 03/14/24 13:11 14:10 WBC MCV MCHC Neutrophils # Sodium Chloride 115 H Carbon Dioxide 17 L BUN 30 H Creatinine 1.08 H Glucose 258 H POC Glucose (mg/dL) 235 H Hemoglobin A1c Calcium Phosphorus Total Protein Albumin TSH Urine Protein Urine Glucose (UA) Urine Ketones Urine Bilirubin Urine Opiates Screen U Tricyclic Antidepress Assessment and Plan Assessment: This is a 53-year-old woman who was transferred from [facility] for escalation of care of DKA and altered mental status. It seems that she did not receive insulin because of malfunction of the pump. This seems to the patient has underlying history of nonepileptic seizure as well as mood disorder and she is on Depakote for her mood. According to the son he has not seen her have a seizure. Will seems that the patient is on morphine for her chronic pain Altered mental status seems due to metabolic encephalopathy due to DKA Acute diabetic ketoacidosis and the sugar is in the 500. Severe anion gap metabolic acidosis Acute on chronic kidney insufficiency Recent outpatient urinary tract infection History of nonepileptic seizure History of hypothyroidism History of coronary artery disease status post stent Hypertension Hyperlipidemia History of mood disorder and patient is on Depakote as well as Seroquel. Plan: Routine EEG ordered by the primary team is pending. Vitamin B12, folate is ordered and is pending I ordered ammonia level Psychiatry is consulted Will defer the rest of the medical management to primary and other specialist Plan discussed with the patient's son was at bedside as well as the ICU nurse. Thank you for the consultation. Time with Patient: Greater than 30
[2024-03-14 15:08] LABS: Glucose,Whole Blood 219 mg/dL (70-110)
[2024-03-14] MEDS: risperiDONE 1 MG TAB PO SCH (15:51)
--- NOTE | 2024-03-14 15:52 | P.PN ---
Subjective Progress Note Date: 03/14/24 Hospital course: Patient is a 53-year-old female with history of diabetes mellitus type 1 who presents with new onset confusion. Patient was transferred from [facility] with limited information. Patient was given 2 L of normal saline and started on insulin drip, ER physician found abnormal UA consistent with UTI and she was given 1 g of Rocephin and an amp of bicarb. Glucose was 703, pH 6.9, lactic acid 3.9, anion gap of 40 with bicarb of 4. Patient transferred to [facility]. Initial lab work done in the ER showed WBC 11.9, hemoglobin 11.6, platelets 193, sodium 142, potassium 4.6, chloride 108, bicarb less than 5, BUN 27, creatinine 1.80, glucose 499, calcium 7.8. EKG done in the ER independently interpreted showed heart rate of 131, no ST segment elevation or depression seen, no T-wave inversions seen. CT head done independently interpreted showed no acute intracranial process. Patient admitted to internal medicine service for treatment of DKA. Patient was transferred to ICU for further management. Subjective: Patient seen and examined at the bedside. Patient continued to be confused. Patient is AO x 1. Patient is not complaining of any pain or weakness and numbness. All Systems reviewed and pertinent positives and negatives noted in HPI, all other symptoms are negative Objective: Vital signs reviewed. General: non toxic, no distress, appears at stated age, normal weight, Hoover catheter in place Derm: no unusual rashes/lesions, warm Head: atraumatic, normocephalic, symmetric Eyes: EOMI, no lid lag, anicteric sclera, pupils equal round reactive to light ENT: Nose and ears atraumatic Neck: No cervical lymphadenopathy, trachea midline, supple Mouth: no lip lesion, mucus membranes moist Cardiovascular: S1S2 reg, no murmur, positive dorsalis pedis pulse bilateral, no edema Lungs: CTA bilateral, no rhonchi, no rales, no accessory muscle use Abdominal: soft, nontender to palpation, no guarding Ext: muscle strength 5 out of 5 in all 4 extremities grossly, no gross muscle atrophy, no contractures, Neuro: CN II-XI grossly intact, no gross focal neuro deficits Psych: AOx3 Data reviewed today: Labs: Sodium 144, potassium 3.7, chloride 115, bicarb 17, anion gap 12, BUN 30, creatinine 1.08, EGFR 68, glucose 258, HbA1c 9.5. Images: Renal and bladder ultrasound shows no evidence of hydronephrosis with Hoover catheter in place. Assessment and Plan: Patient is a 53-year-old female with history of diabetes mellitus type 1 who is being treated for DKA. #Acute toxic/metabolic encephalopathy #Diabetic ketoacidosis #Diabetes mellitus, type I #High anion gap metabolic acidosis #Hypernatremia #History of psychotic disorder Continue D5 1/2 with KCl 150 mL/hr Potassium and magnesium replacement per protocol Give bicarb if pH <6.9 Continue insulin drip Consider transitioning to basal bolus insulin once anion gap is closed and bicarb is >18 Continue monitoring phosphorus, BUN, creatinine, electrolytes, glucose every 4 hours HbA1c is 9.5 and UDS positive for opiates and TCA antidepressant. Order TSH, vitamin B12, RBC folate Order blood culture Check valproic acid serum level Psychiatry consulted -Discussed management with neurology, EEG pending -Hold Flexeril and morphine #Leukocytosis, reactive Given Rocephin for possible UTI at outside facility Repeat UA is negative for UTI # Prerenal acute kidney injury, due to dehydration Previous baseline creatinine 0.84 on 01/2021 Creatinine improved to 1.08 Renal and bladder ultrasound shows no evidence of hydronephrosis FENa is 0.1% hold ROBIN inhibitor and avoid nephrotoxic medications Chronic Medical Conditions # Essential hypertension -Continue Coreg 12.5 twice daily #Hyperlidemia - Resume home simvastatin 40 mg #Hypothyroidism - Resume home Synthroid 175 mcg #Anxiety/Depression - Resume home medication sertraline 100 mg #Insomnia Seroquel 400 mg nightly F: IV D5 half-normal saline with KCl at 150 cc/h E: Replete as needed N: N.p.o. E: None DVT ppx: Subq Lovenox Code status: Full code Anticipated discharge place: Pending clinical course Anticipated discharge time: Pending clinical course I have seen and evaluated the patient today. Discussed with the resident and agree with the residents finding and plan as documented in the resident's note. Changes highlighted in blue font. Objective - Vital Signs Vital signs: Vital Signs Temp 98.2 F 03/14/24 08:00 Pulse 106 H 03/14/24 14:00 Resp 12 03/14/24 14:00 BP 144/63 03/14/24 14:00 Pulse Ox 99 03/14/24 14:00 FiO2 Intake & Output 03/13/24 03/14/24 03/14/24 18:59 06:59 18:59 Intake Total 2162.322 1286.896 Output Total 1360 555 Balance 802.322 731.896 Weight 76.4 kg 78.9 kg 78.9 kg Intake: Intake, IV Titration 2162.322 1286.896 Amount D5-0.45% NaCl with KCl 900 1200 20Meq/l 1,000 ml @ 150 mls/hr IV .Q6H40M [facility] Rx# :[id number] Insulin Regular 100 unit 67.322 21.896 In Sodium Chloride 0.9% 100 ml @ 0.1 UNITS/KG/HR 7.716 mls/hr IV .Q13H6M [facility] Rx#:[id number] Sodium Chloride 0.9% 1, 1000 000 ml @ 200 mls/hr IV . Q5H [facility] Rx#:[id number] Sodium Phosphate 30 mmol 195 65 In Dextrose 5% in Water 250 ml @ 65 mls/hr IVPB ONCE ONE Rx#:[id number] Oral 0 Output: Urine 1360 555 Other: Voiding Method Indwelling Catheter Indwelling Catheter - Labs CBC & Chem 7: 03/13/24 18:48 03/14/24 13:11 Labs: Abnormal Lab Results - Last 24 Hours (Table) 03/13/24 03/13/24 03/13/24 Range/Units 18:25 18:48 19:09 WBC 11.9 H (3.8-10.6) k/uL MCV 102.3 H (80.0-100.0) fL MCHC 29.4 L (31.0-37.0) g/dL Neutrophils # 9.4 H (1.3-7.7) k/uL Sodium (137-145) mmol/L Chloride 108 H (98-107) mmol/L Carbon Dioxide <5 L* (22-30) mmol/L BUN 27 H (7-17) mg/dL Creatinine 1.80 H (0.52-1.04) mg/dL Glucose 499 H (74-99) mg/dL POC Glucose (mg/dL) 575 H* (70-110) mg/dL Hemoglobin A1c (<=6.0) % Calcium 7.8 L (8.4-10.2) mg/dL Phosphorus (2.5-4.5) mg/dL Total Protein 6.1 L (6.3-8.2) g/dL Albumin 3.3 L (3.5-5.0) g/dL TSH (0.465-4.680) mIU/L Urine Protein (Negative) Urine Glucose (UA) (Negative) Urine Ketones (Negative) Urine Bilirubin (Negative) Urine Opiates Screen (NotDetected) U Tricyclic Antidepress (NotDetected) 03/13/24 03/13/24 03/13/24 Range/Units 20:00 20:22 20:22 WBC (3.8-10.6) k/uL MCV (80.0-100.0) fL MCHC (31.0-37.0) g/dL Neutrophils # (1.3-7.7) k/uL Sodium (137-145) mmol/L Chloride (98-107) mmol/L Carbon Dioxide <5 L* (22-30) mmol/L BUN 29 H (7-17) mg/dL Creatinine 1.99 H (0.52-1.04) mg/dL Glucose 477 H (74-99) mg/dL POC Glucose (mg/dL) 458 H (70-110) mg/dL Hemoglobin A1c (<=6.0) % Calcium (8.4-10.2) mg/dL Phosphorus 5.9 H (2.5-4.5) mg/dL Total Protein (6.3-8.2) g/dL Albumin (3.5-5.0) g/dL TSH (0.465-4.680) mIU/L Urine Protein (Negative) Urine Glucose (UA) (Negative) Urine Ketones (Negative) Urine Bilirubin (Negative) Urine Opiates Screen (NotDetected) U Tricyclic Antidepress (NotDetected) 03/13/24 03/13/24 03/13/24 Range/Units 20:52 21:05 21:59 WBC (3.8-10.6) k/uL MCV (80.0-100.0) fL MCHC (31.0-37.0) g/dL Neutrophils # (1.3-7.7) k/uL Sodium (137-145) mmol/L Chloride (98-107) mmol/L Carbon Dioxide (22-30) mmol/L BUN (7-17) mg/dL Creatinine (0.52-1.04) mg/dL Glucose (74-99) mg/dL POC Glucose (mg/dL) 406 H 369 H (70-110) mg/dL Hemoglobin A1c (<=6.0) % Calcium (8.4-10.2) mg/dL Phosphorus (2.5-4.5) mg/dL Total Protein (6.3-8.2) g/dL Albumin (3.5-5.0) g/dL TSH (0.465-4.680) mIU/L Urine Protein (Negative) Urine Glucose (UA) (Negative) Urine Ketones (Negative) Urine Bilirubin (Negative) Urine Opiates Screen Detected H (NotDetected) U Tricyclic Antidepress Detected H (NotDetected) 03/13/24 03/13/24 03/14/24 Range/Units 22:05 22:54 00:12 WBC (3.8-10.6) k/uL MCV (80.0-100.0) fL MCHC (31.0-37.0) g/dL Neutrophils # (1.3-7.7) k/uL Sodium (137-145) mmol/L Chloride (98-107) mmol/L Carbon Dioxide (22-30) mmol/L BUN (7-17) mg/dL Creatinine (0.52-1.04) mg/dL Glucose (74-99) mg/dL POC Glucose (mg/dL) 344 H 225 H (70-110) mg/dL Hemoglobin A1c (<=6.0) % Calcium (8.4-10.2) mg/dL Phosphorus (2.5-4.5) mg/dL Total Protein (6.3-8.2) g/dL Albumin (3.5-5.0) g/dL TSH (0.465-4.680) mIU/L Urine Protein Trace H (Negative) Urine Glucose (UA) 4+ H (Negative) Urine Ketones 4+ H (Negative) Urine Bilirubin 1+ H (Negative) Urine Opiates Screen (NotDetected) U Tricyclic Antidepress (NotDetected) 03/14/24 03/14/2424 Range/Units 00:58 01:34 01:49 WBC (3.8-10.6) k/uL MCV (80.0-100.0) fL MCHC (31.0-37.0) g/dL Neutrophils # (1.3-7.7) k/uL Sodium (137-145) mmol/L Chloride 112 H (98-107) mmol/L Carbon Dioxide 12 L (22-30) mmol/L BUN 32 H (7-17) mg/dL Creatinine 1.64 H (0.52-1.04) mg/dL Glucose 151 H (74-99) mg/dL POC Glucose (mg/dL) 172 H 169 H (70-110) mg/dL Hemoglobin A1c (<=6.0) % Calcium (8.4-10.2) mg/dL Phosphorus 1.9 L (2.5-4.5) mg/dL Total Protein (6.3-8.2) g/dL Albumin (3.5-5.0) g/dL TSH (0.465-4.680) mIU/L Urine Protein (Negative) Urine Glucose (UA) (Negative) Urine Ketones (Negative) Urine Bilirubin (Negative) Urine Opiates Screen (NotDetected) U Tricyclic Antidepress (NotDetected) 03/14/24 03/14/24 03/14/24 Range/Units 02:58 03:52 05:01 WBC (3.8-10.6) k/uL MCV (80.0-100.0) fL MCHC (31.0-37.0) g/dL Neutrophils # (1.3-7.7) k/uL Sodium (137-145) mmol/L Chloride (98-107) mmol/L Carbon Dioxide (22-30) mmol/L BUN (7-17) mg/dL Creatinine (0.52-1.04) mg/dL Glucose (74-99) mg/dL POC Glucose (mg/dL) 141 H 127 H 148 H (70-110) mg/dL Hemoglobin A1c (<=6.0) % Calcium (8.4-10.2) mg/dL Phosphorus (2.5-4.5) mg/dL Total Protein (6.3-8.2) g/dL Albumin (3.5-5.0) g/dL TSH (0.465-4.680) mIU/L Urine Protein (Negative) Urine Glucose (UA) (Negative) Urine Ketones (Negative) Urine Bilirubin (Negative) Urine Opiates Screen (NotDetected) U Tricyclic Antidepress (NotDetected) 03/14/24 03/14/24 03/14/24 Range/Units 05:56 05:56 05:57 WBC (3.8-10.6) k/uL MCV (80.0-100.0) fL MCHC (31.0-37.0) g/dL Neutrophils # (1.3-7.7) k/uL Sodium 147 H (137-145) mmol/L Chloride 113 H (98-107) mmol/L Carbon Dioxide 15 L (22-30) mmol/L BUN 32 H (7-17) mg/dL Creatinine 1.36 H (0.52-1.04) mg/dL Glucose 240 H (74-99) mg/dL POC Glucose (mg/dL) 260 H (70-110) mg/dL Hemoglobin A1c 9.5 H (<=6.0) % Calcium 8.3 L (8.4-10.2) mg/dL Phosphorus (2.5-4.5) mg/dL Total Protein (6.3-8.2) g/dL Albumin (3.5-5.0) g/dL TSH (0.465-4.680) mIU/L Urine Protein (Negative) Urine Glucose (UA) (Negative) Urine Ketones (Negative) Urine Bilirubin (Negative) Urine Opiates Screen (NotDetected) U Tricyclic Antidepress (NotDetected) 03/14/24 03/14/24 03/14/24 Range/Units 05:59 07:03 08:24 WBC (3.8-10.6) k/uL MCV (80.0-100.0) fL MCHC (31.0-37.0) g/dL Neutrophils # (1.3-7.7) k/uL Sodium (137-145) mmol/L Chloride (98-107) mmol/L Carbon Dioxide (22-30) mmol/L BUN (7-17) mg/dL Creatinine (0.52-1.04) mg/dL Glucose (74-99) mg/dL POC Glucose (mg/dL) 159 H 203 H 220 H (70-110) mg/dL Hemoglobin A1c (<=6.0) % Calcium (8.4-10.2) mg/dL Phosphorus (2.5-4.5) mg/dL Total Protein (6.3-8.2) g/dL Albumin (3.5-5.0) g/dL TSH (0.465-4.680) mIU/L Urine Protein (Negative) Urine Glucose (UA) (Negative) Urine Ketones (Negative) Urine Bilirubin (Negative) Urine Opiates Screen (NotDetected) U Tricyclic Antidepress (NotDetected) 03/14/24 03/14/24 03/14/24 Range/Units 09:02 10:07 11:01 WBC (3.8-10.6) k/uL MCV (80.0-100.0) fL MCHC (31.0-37.0) g/dL Neutrophils # (1.3-7.7) k/uL Sodium (137-145) mmol/L Chloride (98-107) mmol/L Carbon Dioxide (22-30) mmol/L BUN (7-17) mg/dL Creatinine (0.52-1.04) mg/dL Glucose (74-99) mg/dL POC Glucose (mg/dL) 235 H 246 H 269 H (70-110) mg/dL Hemoglobin A1c (<=6.0) % Calcium (8.4-10.2) mg/dL Phosphorus (2.5-4.5) mg/dL Total Protein (6.3-8.2) g/dL Albumin (3.5-5.0) g/dL TSH (0.465-4.680) mIU/L Urine Protein (Negative) Urine Glucose (UA) (Negative) Urine Ketones (Negative) Urine Bilirubin (Negative) Urine Opiates Screen (NotDetected) U Tricyclic Antidepress (NotDetected) 03/14/24 03/14/24 03/14/24 Range/Units 11:52 13:01 13:11 WBC (3.8-10.6) k/uL MCV (80.0-100.0) fL MCHC (31.0-37.0) g/dL Neutrophils # (1.3-7.7) k/uL Sodium (137-145) mmol/L Chloride (98-107) mmol/L Carbon Dioxide (22-30) mmol/L BUN (7-17) mg/dL Creatinine (0.52-1.04) mg/dL Glucose (74-99) mg/dL POC Glucose (mg/dL) 320 H 267 H (70-110) mg/dL Hemoglobin A1c (<=6.0) % Calcium (8.4-10.2) mg/dL Phosphorus (2.5-4.5) mg/dL Total Protein (6.3-8.2) g/dL Albumin (3.5-5.0) g/dL TSH <0.015 L (0.465-4.680) mIU/L Urine Protein (Negative) Urine Glucose (UA) (Negative) Urine Ketones (Negative) Urine Bilirubin (Negative) Urine Opiates Screen (NotDetected) U Tricyclic Antidepress (NotDetected) 03/14/24 03/14/24 03/14/24 Range/Units 13:11 14:10 15:05 WBC (3.8-10.6) k/uL MCV (80.0-100.0) fL MCHC (31.0-37.0) g/dL Neutrophils # (1.3-7.7) k/uL Sodium (137-145) mmol/L Chloride 115 H (98-107) mmol/L Carbon Dioxide 17 L (22-30) mmol/L BUN 30 H (7-17) mg/dL Creatinine 1.08 H (0.52-1.04) mg/dL Glucose 258 H (74-99) mg/dL POC Glucose (mg/dL) 235 H 219 H (70-110) mg/dL Hemoglobin A1c (<=6.0) % Calcium (8.4-10.2) mg/dL Phosphorus (2.5-4.5) mg/dL Total Protein (6.3-8.2) g/dL Albumin (3.5-5.0) g/dL TSH (0.465-4.680) mIU/L Urine Protein (Negative) Urine Glucose (UA) (Negative) Urine Ketones (Negative) Urine Bilirubin (Negative) Urine Opiates Screen (NotDetected) U Tricyclic Antidepress (NotDetected)
[2024-03-14] MEDS ORDERED: QUEtiapine 50 MG TAB PO SCH (16:00)
[2024-03-14 16:06] LABS: Glucose,Whole Blood 207 mg/dL (70-110)
[2024-03-14 16:56] LABS: African American GFR (CKD) 75 (>60 ml/min/1.73 sqM); Anion Gap 10 mmol/L; Blood Urea Nitrogen 28 mg/dL (7-17); Calcium 8.5 mg/dL (8.4-10.2); Carbon Dioxide 18 mmol/L (22-30); Chloride 117 mmol/L (98-107); Glucose 186 mg/dL (74-99); Non-African American GFR(CKD) 65 (>60 ml/min/1.73 sqM); Potassium 3.5 mmol/L (3.5-5.1); Sodium 145 mmol/L (137-145)
[2024-03-14 17:27] LABS: Glucose,Whole Blood 172 mg/dL (70-110)
[2024-03-14] MEDS: POTASSIUM CHLORIDE ER 20 MEQ TAB.ER PO SCH (17:49)
[2024-03-14] MEDS: INSULIN NPH 100 UNIT/ML 10 ML VIAL SQ ONE (17:50)
[2024-03-14] MEDS: INSULIN ASPART (NovoLOG) 100 UNIT/ML VIAL SQ SCH ×2 (17:50)
[2024-03-14] MEDS: MELATONIN 5 MG TABLET PO SCH (20:00)
[2024-03-14] MEDS: INSULIN DETEMIR (LEVEMIR) 100 UNIT/ML SYR SQ SCH (21:00)
[2024-03-14 21:01] LABS: Glucose,Whole Blood 153 mg/dL (70-110)
[2024-03-15 02:01] LABS: Glucose,Whole Blood 118 mg/dL (70-110)
[2024-03-15] MEDS: haloperidoL 5 MG TAB PO PRN (03:53)
[2024-03-15 06:18] LABS: Glucose,Whole Blood 83 mg/dL (70-110)
[2024-03-15 07:59] LABS: Basophils % (A) 1 %; Eosinophils % (A) 0 %; HCT 32.2 % (34.0-46.0); HGB 10.7 gm/dL (11.4-16.0); Lymphocytes % (A) 13 %; MCH 30.1 pg (25.0-35.0); MCHC 33.1 g/dL (31.0-37.0); Monocytes # (A) 0.7 k/uL (0-1.0); Monocytes % (A) 8 %; Neutrophils % (A) 77 %; Platelet Count 139 k/uL (150-450); RBC 3.54 m/uL (3.80-5.40); RDW 12.8 % (11.5-15.5); WBC 7.9 k/uL (3.8-10.6)
[2024-03-15 08:21] LABS: African American GFR (CKD) >90 (>60 ml/min/1.73 sqM); Anion Gap 7 mmol/L; Blood Urea Nitrogen 18 mg/dL (7-17); Calcium 8.6 mg/dL (8.4-10.2); Carbon Dioxide 23 mmol/L (22-30); Chloride 115 mmol/L (98-107); Glucose 106 mg/dL (74-99); Non-African American GFR(CKD) 83 (>60 ml/min/1.73 sqM); Potassium 3.6 mmol/L (3.5-5.1); Sodium 145 mmol/L (137-145)
[2024-03-15 08:23] LABS: MCV 91.1 fL (80.0-100.0)
[2024-03-15] MEDS: LEVOTHYROXINE 125 MCG TAB PO SCH (10:31)
[2024-03-15 11:16] LABS: Glucose,Whole Blood 188 mg/dL (70-110)
--- NOTE | 2024-03-15 13:21 | P.PN ---
Subjective Progress Note Date: 03/15/24 I am following-up with patient and per the nursing staff and primary team she is doing better. She feels she is doing better. She was not cooperative for EEG in the morning per the tech and yesterday she was too restless to have EEG. She denies of headache, focal weakness, visual disturbance. Objective - Vital Signs Vital signs: Vital Signs Temp 98.5 F 03/15/24 08:00 Pulse 82 03/15/24 12:00 Resp 18 03/15/24 12:00 BP 165/75 03/15/24 12:00 Pulse Ox 95 03/15/24 12:00 FiO2 60 03/14/24 16:00 Intake & Output 03/14/24 03/15/24 03/15/24 18:59 06:59 18:59 Intake Total 1786.896 222 Output Total 880 650 Balance 906.896 -650 222 Weight 78.9 kg 75.1 kg Intake: Intake, IV Titration 1786.896 Amount D5-0.45% NaCl with KCl 1700 20Meq/l 1,000 ml @ 50 mls /hr IV .Q20H [facility] Rx#: [id number] Insulin Regular 100 unit 21.896 In Sodium Chloride 0.9% 100 ml @ 0.1 UNITS/KG/HR 7.716 mls/hr IV .Q13H6M [facility] Rx#:[id number] Sodium Phosphate 30 mmol 65 In Dextrose 5% in Water 250 ml @ 65 mls/hr IVPB ONCE ONE Rx#:[id number] Oral 222 Output: Urine 880 650 Straight 650 Other: Voiding Method Indwelling Catheter Indwelling Catheter # Voids 1 2 # Bowel Movements 1 1 2 - Exam General: Lying in bed and is not in acute distress. Neuro: Sleeping but was awake able to voice. She is oriented to self, place and time. Is following simple commands. No aphasia from limited language. The pupils are round equal reactive to light. Visual preciado are full to confrontation. Extraocular movements intact no nystagmus. No facial weakness. No dysarthria Motor strength is 5 out of 5 throughout. Some of the workup during this hospital visit consisted of: On presentation her POC glucose is 575, creatinine is 1.80, carbon oxide is less than 5, CT of the head is reported as mostly limited exam, no acute intracranial proce ss. I reviewed the CT and I agree that exam is limited because of motion artifact and there is no obvious acute or subacute ischemic stroke. Her sugar was in the 500s on presentation-->100's, slightly elevated creatinine. Her hemoglobin A1c is 9.5. Ammonia is less than 5. TSH is less than 0.015 and free T4 is 2.17. Vitamin B12: 619 Folate is 8 Urine drug screen is positive for TCA as well as opiate. Valproic acid is 24.1. Urinalysis is negative for underlying acute urinary tract infection - Labs CBC & Chem 7: 03/15/24 07:15 03/15/24 07:15 Labs: Abnormal Lab Results - Last 24 Hours (Table) 03/14/24 03/14/24 03/14/24 Range/Units 13:11 13:11 14:10 RBC (3.80-5.40) m/uL Hgb (11.4-16.0) gm/dL Hct (34.0-46.0) % Plt Count (150-450) k/uL Chloride 115 H (98-107) mmol/L Carbon Dioxide 17 L (22-30) mmol/L BUN 30 H (7-17) mg/dL Creatinine 1.08 H (0.52-1.04) mg/dL Glucose 258 H (74-99) mg/dL POC Glucose (mg/dL) 235 H (70-110) mg/dL TSH <0.015 L (0.465-4.680) mIU/L 03/14/24 03/14/24 03/14/24 Range/Units 15:05 16:04 16:24 RBC (3.80-5.40) m/uL Hgb (11.4-16.0) gm/dL Hct (34.0-46.0) % Plt Count (150-450) k/uL Chloride 117 H (98-107) mmol/L Carbon Dioxide 18 L (22-30) mmol/L BUN 28 H (7-17) mg/dL Creatinine (0.52-1.04) mg/dL Glucose 186 H (74-99) mg/dL POC Glucose (mg/dL) 219 H 207 H (70-110) mg/dL TSH (0.465-4.680) mIU/L 03/14/24 03/14/2403/15/24 Range/Units 17:26 20:59 01:59 RBC (3.80-5.40) m/uL Hgb (11.4-16.0) gm/dL Hct (34.0-46.0) % Plt Count (150-450) k/uL Chloride (98-107) mmol/L Carbon Dioxide (22-30) mmol/L BUN (7-17) mg/dL Creatinine (0.52-1.04) mg/dL Glucose (74-99) mg/dL POC Glucose (mg/dL) 172 H 153 H 118 H (70-110) mg/dL TSH (0.465-4.680) mIU/L 03/15/24 03/15/24 03/15/24 Range/Units 07:15 07:15 11:12 RBC 3.54 L (3.80-5.40) m/uL Hgb 10.7 L (11.4-16.0) gm/dL Hct 32.2 L (34.0-46.0) % Plt Count 139 L (150-450) k/uL Chloride 115 H (98-107) mmol/L Carbon Dioxide (22-30) mmol/L BUN 18 H (7-17) mg/dL Creatinine (0.52-1.04) mg/dL Glucose 106 H (74-99) mg/dL POC Glucose (mg/dL) 188 H (70-110) mg/dL TSH (0.465-4.680) mIU/L Microbiology - Last 24 Hours (Table) 03/14/24 01:00 Urine Culture - Final Urine,Catheterized Assessment and Plan Assessment: This is a 53-year-old woman who was transferred from [facility] for escalation of care of DKA and altered mental status. It seems that she did not receive insulin because of malfunction of the pump. This seems to the patient has underlying history of nonepileptic seizure as well as mood disorder and she is on Depakote for her mood. According to the son he has not seen her have a seizure. Will seems that the patient is on morphine for her chronic pain Altered mental status seems due to metabolic encephalopathy due to DKA---sugar is improved and mentation is drastically better. Acute diabetic ketoacidosis and the sugar is in the 500--resolved Severe anion gap metabolic acidosis Acute on chronic kidney insufficiency Recent outpatient urinary tract infection History of nonepileptic seizure DM and is on insulin pump. HbA1c 9.5 History of hypothyroidism History of coronary artery disease status post stent Hypertension Hyperlipidemia History of mood disorder and patient is on Depakote as well as Seroquel. Plan: Routine EEG ordered by the primary team and she was restless yesterday so could not be performed and today per tech patient did not want to cooperate for it. Since mentation has improved no need for EEG. Psychiatry is consulted Will defer the rest of the medical management to primary and other specialist Plan discussed with the patient and primary team. Will follow-up with patient sporadically. Dr. Mccain will resume neurology service tomorrow A.M. Time with Patient: Less than 30
--- NOTE | 2024-03-15 14:40 | P.PN ---
Subjective Progress Note Date: 03/15/24 Patient is a 53-year-old female with past medical history significant for type 1 diabetes, insulin pump, chronic kidney disease, hypertension, hyperlipidemia, CAD with previous PCI/stenting, among other things. Patient was transferred from [facility] yesterday evening. She was found to have DKA. Presented with altered mental status, and she is currently a poor historian. Patient's son stated that her insulin pump had been malfunctioning for approximately 24 hours. Of note, patient recently treated outpatient for possible UTI. Patient is still in a state of diabetic ketoacidosis. Blood glucose was 499 on arrival to our facility, serum bicarb less than 5, anion gap unmeasurable, urine ketone positive. She is on the insulin protocol. She was just transition to D5W/0.45% saline/20 mEq of potassium at 150 mL/h. She appears confused, she is a poor historian. CBC: WBC count 11.9, hemoglobin 11.6, platelets 193. Most recent CMP: Sodium 142, potassium 4.7, chloride 106, serum bicarb less than 5, BUN 29, creatinine 1.99, glucose most recently 172. LFTs unremarkable. Urinalysis obtained at our facility not remarkable for infection. Urine toxicology screen positive for opiates and TCAs. Brain CT without contrast done on arrival did not show any acute intracranial hemorrhage, no midline shift or mass effect. Hemodynamics are currently stable. Not on any vasopressors. Remains tachycardic. Afebrile. DKA protocol continues. The patient is seen today March 15, 2024 in follow-up on the selective care unit. She was transferred out of the intensive care unit yesterday. She is currently awake and alert in no acute distress. Sitting up in a chair at the bedside. She is maintaining O2 saturations in the 90s on room air. Urine culture revealed no growth. White count 7.9. Hemoglobin 10.7. Platelets 139. Sodium 145. Potassium 3.6. Bicarb 23. BUN 18. Creatinine 0.82. Glucose 106. She has been transitioned back to Levemir and NovoLog sliding scale. She has been initiated on Risperdal and Haldol per psychiatry. Objective - Vital Signs Vital signs: Vital Signs Temp 98.5 F 03/15/24 08:00 Pulse 82 03/15/24 14:00 Resp 18 03/15/24 12:00 BP 165/75 03/15/24 12:00 Pulse Ox 95 03/15/24 12:00 FiO2 60 03/14/24 16:00 Intake & Output 03/14/24 03/15/24 03/15/24 18:59 06:59 18:59 Intake Total 1786.896 342 Output Total 880 650 Balance 906.896 -650 342 Weight 78.9 kg 75.1 kg Intake: Intake, IV Titration 1786.896 Amount D5-0.45% NaCl with KCl 1700 20Meq/l 1,000 ml @ 50 mls /hr IV .Q20H [facility] Rx#: [id number] Insulin Regular 100 unit 21.896 In Sodium Chloride 0.9% 100 ml @ 0.1 UNITS/KG/HR 7.716 mls/hr IV .Q13H6M [facility] Rx#:[id number] Sodium Phosphate 30 mmol 65 In Dextrose 5% in Water 250 ml @ 65 mls/hr IVPB ONCE ONE Rx#:[id number] Oral 342 Output: Urine 880 650 Straight 650 Other: Voiding Method Indwelling Catheter Indwelling Catheter Indwelling Catheter # Voids 1 2 # Bowel Movements 1 1 2 - Exam GENERAL EXAM: Alert, cooperative 53-year-old female, sitting up in bed, on room air, no acute distress HEAD: Normocephalic and atraumatic EYES: Normal reaction of pupils, equal size. NOSE: Clear with pink turbinates. THROAT: No erythema or exudates. NECK: No masses, no JVD. CHEST: No chest wall deformity. LUNGS: Equal air entry with no crackles, wheeze, rhonchi or dullness. No conversational dyspnea. CVS: S1 and S2 normal with no audible murmur, regular rhythm. No extra heart sounds. ABDOMEN: No hepatosplenomegaly, active bowel sounds, no guarding or rigidity. SPINE: No scoliosis or deformity SKIN: No rashes CENTRAL NERVOUS SYSTEM: No focal deficits, tone is normal in all 4 extremities. EXTREMITIES: There is no peripheral edema, clubbing, or cyanosis. Peripheral pulses are intact. - Labs CBC & Chem 7: 03/15/24 07:15 03/15/24 07:15 Labs: Abnormal Lab Results - Last 24 Hours (Table) 03/14/24 03/14/24 03/14/24 Range/Units 15:05 16:04 16:24 RBC (3.80-5.40) m/uL Hgb (11.4-16.0) gm/dL Hct (34.0-46.0) % Plt Count (150-450) k/uL Chloride 117 H (98-107) mmol/L Carbon Dioxide 18 L (22-30) mmol/L BUN 28 H (7-17) mg/dL Glucose 186 H (74-99) mg/dL POC Glucose (mg/dL) 219 H 207 H (70-110) mg/dL 03/14/24 03/14/24 03/15/24 Range/Units 17:26 20:59 01:59 RBC (3.80-5.40) m/uL Hgb (11.4-16.0) gm/dL Hct (34.0-46.0) % Plt Count (150-450) k/uL Chloride (98-107) mmol/L Carbon Dioxide (22-30) mmol/L BUN (7-17) mg/dL Glucose (74-99) mg/dL POC Glucose (mg/dL) 172 H 153 H 118 H (70-110) mg/dL 03/15/24 03/15/24 03/15/24 Range/Units 07:15 07:15 11:12 RBC 3.54 L (3.80-5.40) m/uL Hgb 10.7 L (11.4-16.0) gm/dL Hct 32.2 L (34.0-46.0) % Plt Count 139 L (150-450) k/uL Chloride 115 H (98-107) mmol/L Carbon Dioxide (22-30) mmol/L BUN 18 H (7-17) mg/dL Glucose 106 H (74-99) mg/dL POC Glucose (mg/dL) 188 H (70-110) mg/dL Microbiology - Last 24 Hours (Table) 03/14/24 01:00 Urine Culture - Final Urine,Catheterized Assessment and Plan Assessment: Acute diabetic ketoacidosis; CBG 499, serum bicarb less than 5, anion gap unmeasurable, urine ketone positive; possibly secondary to insulin pump malfunction, currently on DKA protocol. Recovered Severe anion gap metabolic acidosis, secondary to above, recovered Altered mental status, suspect acute metabolic encephalopathy, secondary to DKA, improved Type 1 diabetes mellitus, normally managed with insulin pump Severe dehydration Acute on chronic kidney disease, secondary to above Recent outpatient treatment UTI Hypertension History of hyperlipidemia History of coronary artery disease with previous PCI/stenting History of hypothyroidism History of depression/bipolar Plan: The patient was seen and evaluated Labs and medications reviewed Transition to Levemir/NovoLog Evaluated by psychiatry Initiated Risperdal and Haldol Stable and on room air I have personally seen and examined the patient, performed the documentation and the assessment and plan as written. Number of minutes spent on the visit: 10 Dictation was produced using [employer] dictation software. Please excuse any grammatical, word or spelling errors.
--- NOTE | 2024-03-15 14:54 | P.PN ---
Progress Note - Text Progress Note Date: 03/15/24 Interval history: Patient was seen today for psychiatric follow-up regarding patient's delirium and mood disorder. Patient was started on Risperdal twice daily and also Depakote twice daily. Patient's nurse states that patient is doing a bit better today, less confused, did not sleep well last night has been eating. Patient was seen again today at the bedside, her son was at the bedside today again. He did state that she is doing a bit better compared to yesterday however claims that she is still fairly confused. Patient appeared to be more awake today and interactive with chart writer, more appropriate today in her answers. She did not know today's date at all, she knew the correct location however did not know the city. She knew her full name and her date of and age. She claims that she is doing a bit better today, she appeared to have improvement in her attention span. More appropriate with her answers. Denies any depression mood swings or anxiety. At this time she is denying any auditory or visual hallucinations. Denying any suicidal homicidal ideations intent or plan. Denies any side effects from medications. MENTAL STATUS EXAM: General Appearance: Patient appears to be mildly overweight, stated age is more alert today, mildly confused, improving mildly,. Patient appears to have improving hygiene and grooming wearing hospital gown with improving eye contact. Behavior: Patient is calmly lying in bed without any agitated behavior. More awake today, attempts to cooperate Speech: Fluent, nonpressured. Mood/Affect: Claims that her mood is improving, affect is congruent and constricted Suicidality/Homicidality: Denies Perceptions: Denies. Though content/process: More goal oriented today, more logical. Not endorsing any delusions. Memory and concentration: Alert and oriented x 1-2, does not know the full location, and does not know today's date. Attention span improving. Judgment and insight: Poor, improving mildly IMPRESSIONS: Delirium, etiology likely toxic-metabolic Mood disorder unspecified Nicotine dependence Diabetes mellitus PLAN: -At this time patient DOES NOT meet criteria for inpatient psychiatric admission. -Delirium precautions recommended with patient including - avoiding use of narcotics and WOOD [employer]ER sedatives, limit anticholinergic medications when possible, frequent re-orientation, minimize use of restraints, open window shades during the day and close them at night -Would recommend the following medication changes/additions: Michaell is not a good option for this patient has it has a tendency to cause disruption in blood glucose levels and cause weight gain. Increase Risperdal 1 mg daily + 2 mg qhs for mood stabilization/psychosis/delirium. increase Melatonin 10 mg nightly for sleep. Added Haldol p.o. and IM as needed for agitation. added trazodone 50 mg qhs for insomnia/mood. Please avoid opiates and benzodiazepines as this will likely increase patient's confusion and delirium. -electrical maintenance worker to provide patient with outpatient mental health/psychiatry resources for appropriate follow up upon discharge -Communicated plan to patient's nurse -at this time will continue to follow only if patients condition deteriorates or furhter issues arise. please contant MHU if requesting for further follow up or directions. -Please contact with any questions.
--- NOTE | 2024-03-15 14:59 | P.PN ---
Subjective Progress Note Date: 03/15/24 Hospital course: Patient is a 53-year-old female with history of diabetes mellitus type 1 who presents with new onset confusion. Patient was transferred from [facility] with limited information. Patient was given 2 L of normal saline and started on insulin drip, ER physician found abnormal UA consistent with UTI and she was given 1 g of Rocephin and an amp of bicarb. Glucose was 703, pH 6.9, lactic acid 3.9, anion gap of 40 with bicarb of 4. Patient transferred to [facility]. Initial lab work done in the ER showed WBC 11.9, hemoglobin 11.6, platelets 193, sodium 142, potassium 4.6, chloride 108, bicarb less than 5, BUN 27, creatinine 1.80, glucose 499, calcium 7.8. EKG done in the ER independently interpreted showed heart rate of 131, no ST segment elevation or depression seen, no T-wave inversions seen. CT head done independently interpreted showed no acute intracranial process. Patient admitted to internal medicine service for treatment of DKA. Patient was transferred to ICU for further management. Patient was transferred to the medical floor after improvem ent in her symptoms and DKA resolved. Patient has returned to her baseline mentation. Subjective: Patient seen and examined at the bedside. Patient is less confused and is feeling better. Patient is AO x 3. Patient is not complaining of any pain or weakness and numbness. All Systems reviewed and pertinent positives and negatives noted in HPI, all other symptoms are negative Objective: Vital signs reviewed. General: non toxic, no distress, appears at stated age, normal weight, Hoover catheter in place Derm: no unusual rashes/lesions, warm Head: atraumatic, normocephalic, symmetric Eyes: EOMI, no lid lag, anicteric sclera, pupils equal round reactive to light ENT: Nose and ears atraumatic Neck: No cervical lymphadenopathy, trachea midline, supple Mouth: no lip lesion, mucus membranes moist Cardiovascular: S1S2 reg, no murmur, positive dorsalis pedis pulse bilateral, no edema Lungs: CTA bilateral, no rhonchi, no rales, no accessory muscle use Abdominal: soft, nontender to palpation, no guarding Ext: muscle strength 5 out of 5 in all 4 extremities grossly, no gross muscle at rophy, no contractures, Neuro: CN II-XI grossly intact, no gross focal neuro deficits Psych: AOx3 Data reviewed today: Labs: WBC 7.9, hemoglobin 10.7, platelet count 139, sodium 145, potassium 2.6, chloride 115, bicarb 23, BUN 18, creatinine 0.82, glucose 106, calcium 8.6 Images: No new imaging. Assessment and Plan: Patient is a 53-year-old female with history of diabetes mellitus type 1 who is being treated for DKA. #Acute toxic/metabolic encephalopathy, resolved #Diabetic ketoacidosis, resolved #Diabetes mellitus, type I #High anion gap metabolic acidosis, resolved #Hypernatremia, resolved #History of psychotic disorder Continue D5 1/2 with KCl 50 mL/hr Potassium and magnesium replacement per protocol Give bicarb if pH <6.9 Continue with sliding scale insulin and Levemir 24 units SQ at bedtime, discontinue scheduled aspart HbA1c is 9.5 and UDS positive for opiates and TCA antidepressant. Vitamin B12 619, folate 8.0 TSH less than 0.015 and free T4 2.17: Decrease levothyroxine from 175 mcg to 125 mcg p.o. daily Order blood culture, results pending Valproic acid 24.1 Psychiatry consulted, Seroquel discontinued, patient started on risperidone 1 mg a.m., 2 mg nightly, Haldol 5 mg p.o. and IM every 6 hours as needed for agitation -Discussed management with neurology, no further need for EEG -Hold Flexeril and morphine -Patient still has poor oral intake, likely discharge once it improves. #Leukocytosis, reactive Given Rocephin for possible UTI at outside facility Repeat UA is negative for UTI # Prerenal acute kidney injury, due to dehydration, resolved Previous baseline creatinine 0.84 on 01/2021 Creatinine improved to 0.8, at baseline Renal and bladder ultrasound shows no evidence of hydronephrosis Resume ROBIN inhibitor Chronic Medical Conditions # Essential hypertension -Continue Coreg 12.5 twice daily #Hyperlidemia - Resume home simvastatin 40 mg #Hypothyroidism - Resume home Synthroid 175 mcg #Anxiety/Depression - Resume home medication sertraline 100 mg #Insomnia Seroquel 400 mg nightly F: IV D5 half-normal saline with KCl at 50 cc/h E: Replete as needed N: N.p.o. E: None DVT ppx: Subq Lovenox Code status: Full code Anticipated discharge place: Pending clinical course Anticipated discharge time: Pending clinical course I have seen and evaluated the patient today. Discussed with the resident and agree with the residents finding and plan as documented in the resident's note. Changes highlighted in blue font. Objective - Vital Signs Vital signs: Vital Signs Temp 98.5 F 03/15/24 08:00 Pulse 82 03/15/24 14:00 Resp 18 03/15/24 12:00 BP 165/75 03/15/24 12:00 Pulse Ox 95 03/15/24 12:00 FiO2 60 03/14/24 16:00 Intake & Output 03/14/24 03/15/24 03/15/24 18:59 06:59 18:59 Intake Total 1786.896 342 Output Total 880 650 Balance 906.896 -650 342 Weight 78.9 kg 75.1 kg Intake: Intake, IV Titration 1786.896 Amount D5-0.45% NaCl with KCl 1700 20Meq/l 1,000 ml @ 50 mls /hr IV .Q20H [facility] Rx#: [id number] Insulin Regular 100 unit 21.896 In Sodium Chloride 0.9% 100 ml @ 0.1 UNITS/KG/HR 7.716 mls/hr IV .Q13H6M [facility] Rx#:[id number] Sodium Phosphate 30 mmol 65 In Dextrose 5% in Water 250 ml @ 65 mls/hr IVPB ONCE ONE Rx#:[id number] Oral 342 Output: Urine 880 650 Straight 650 Other: Voiding Method Indwelling Catheter Indwelling Catheter Indwelling Catheter # Voids 1 2 # Bowel Movements 1 1 2 - Labs CBC & Chem 7: 03/15/24 07:15 03/15/24 07:15 Labs: Abnormal Lab Results - Last 24 Hours (Table) 03/14/24 03/14/24 03/14/24 Range/Units 15:05 16:04 16:24 RBC (3.80-5.40) m/uL Hgb (11.4-16.0) gm/dL Hct (34.0-46.0) % Plt Count (150-450) k/uL Chloride 117 H (98-107) mmol/L Carbon Dioxide 18 L (22-30) mmol/L BUN 28 H (7-17) mg/dL Glucose 186 H (74-99) mg/dL POC Glucose (mg/dL) 219 H 207 H (70-110) mg/dL 03/14/24 03/14/24 03/15/24 Range/Units 17:26 20:59 01:59 RBC (3.80-5.40) m/uL Hgb (11.4-16.0) gm/dL Hct (34.0-46.0) % Plt Count (150-450) k/uL Chloride (98-107) mmol/L Carbon Dioxide (22-30) mmol/L BUN (7-17) mg/dL Glucose (74-99) mg/dL POC Glucose (mg/dL) 172 H 153 H 118 H (70-110) mg/dL 03/15/24 03/15/24 03/15/24 Range/Units 07:15 07:15 11:12 RBC 3.54 L (3.80-5.40) m/uL Hgb 10.7 L (11.4-16.0) gm/dL Hct 32.2 L (34.0-46.0) % Plt Count 139 L (150-450) k/uL Chloride 115 H (98-107) mmol/L Carbon Dioxide (22-30) mmol/L BUN 18 H (7-17) mg/dL Glucose 106 H (74-99) mg/dL POC Glucose (mg/dL) 188 H (70-110) mg/dL Microbiology - Last 24 Hours (Table) 03/14/24 01:00 Urine Culture - Final Urine,Catheterized
[2024-03-15] MEDS: lisinopriL 20 MG TAB PO SCH (15:48)
[2024-03-15 16:21] LABS: Glucose,Whole Blood 291 mg/dL (70-110)
[2024-03-15 20:08] LABS: Glucose,Whole Blood 325 mg/dL (70-110)
[2024-03-15] MEDS: traZODone HCL 50 MG TAB PO SCH (20:34)
[2024-03-15] MEDS: MELATONIN 5 MG TABLET PO SCH (20:34)
[2024-03-15] MEDS: risperiDONE 2 MG TAB PO SCH (21:16)
[2024-03-15 23:12] VITALS: RESP 16
[2024-03-16 02:06] LABS: Glucose,Whole Blood 116 mg/dL (70-110)
[2024-03-16 03:26] LABS: Glucose,Whole Blood 60 mg/dL (70-110)
[2024-03-16 03:41] LABS: Glucose,Whole Blood 92 mg/dL (70-110)
[2024-03-16 06:17] LABS: Glucose,Whole Blood 65 mg/dL (70-110)
[2024-03-16 06:33] LABS: Glucose,Whole Blood 101 mg/dL (70-110)
[2024-03-16 07:39] LABS: Basophils % (A) 0 %; Eosinophils % (A) 0 %; HCT 38.5 % (34.0-46.0); HGB 12.4 gm/dL (11.4-16.0); Lymphocytes % (A) 25 %; MCH 30.3 pg (25.0-35.0); MCHC 32.2 g/dL (31.0-37.0); MCV 94.2 fL (80.0-100.0); Mean Platelet Volume 7.8; Monocytes # (A) 0.5 k/uL (0-1.0); Monocytes % (A) 7 %; Neutrophils # (A) 5.4 k/uL (1.3-7.7); Neutrophils % (A) 66 %; Platelet Count 125 k/uL (150-450); RBC 4.08 m/uL (3.80-5.40); RDW 12.9 % (11.5-15.5); WBC 8.2 k/uL (3.8-10.6)
[2024-03-16 07:51] LABS: African American GFR (CKD) >90 (>60 ml/min/1.73 sqM); Anion Gap 10 mmol/L; Blood Urea Nitrogen 14 mg/dL (7-17); Calcium 8.9 mg/dL (8.4-10.2); Carbon Dioxide 22 mmol/L (22-30); Chloride 110 mmol/L (98-107); Glucose 124 mg/dL (74-99); Non-African American GFR(CKD) >90 (>60 ml/min/1.73 sqM); Potassium 3.5 mmol/L (3.5-5.1); Sodium 142 mmol/L (137-145)
[2024-03-16] MEDS: risperiDONE 1 MG TAB PO SCH (08:28)
[2024-03-16 10:36] VITALS: BP 129/68; PULSE 77; TEMP 97.9
[2024-03-16 11:08] LABS: Glucose,Whole Blood 222 mg/dL (70-110)
--- NOTE | 2024-03-16 11:49 | P.DS ---
Providers Date of admission: 03/13/24 20:38 Expected date of discharge: 03/16/24 Attending physician: Jean-Pierre Rivero MD Consults: 03/13/24 20:37 Consult Physician Stat Consulting Provider: Taylor Gross Consult Reason/Comments: acute dka Do you want consulting provider notified?: Yes 03/14/24 09:40 Consult Physician Routine Consulting Provider: Aldo Friend Consult Reason/Comments: AMS Do you want consulting provider notified?: Yes Consult Physician Routine Consulting Provider: Aureliano Rhoades Consult Reason/Comments: AMS Do you want consulting provider notified?: Yes Primary care physician: Stated None Hospital Course: Discharge Diagnosis: #Acute toxic/metabolic encephalopathy, #Diabetic ketoacidosis #Diabetes mellitus, type I #High anion gap metabolic acidosis #Hypernatremia #History of psychotic disorder #Leukocytosis, reactive # Prerenal acute kidney injury, due to dehydration # Essential hypertension #Hyperlidemia #Hypothyroidism #Anxiety/Depression #Insomnia Hospital Course: Patient is a 53-year-old female with history of diabetes mellitus type 1 who presents with new onset confusion. Patient transferred to [facility] for further management of DKA. Initial lab work done in the ER showed WBC 11.9, hemoglobin 11.6, platelets 193, sodium 142, potassium 4.6, chloride 108, bicarb less than 5, BUN 27, creatinine 1.80, glucose 499, calcium 7.8. EKG done in the ER independently interpreted showed heart rate of 131, no ST segment elevation or depression seen, no T-wave inversions seen. CT head done independently interpreted showed no acute intracranial process. Patient admitted to internal medicine service for treatment of DKA. Patient was transferred to ICU for further management. Patient was transferred to the medical floor after improvement in her symptoms and DKA resolved. Inpatient psychiatrist was consulted given her history of psychiatric disorder and altered mental status. Adjustment to her psychiatric medications were made as per psychiatrist. Patient has returned to her baseline mentation. Her symptoms continue to improve over the course of her hospitalization. Labs from 03/16/2024 shows WBC 8.2 hemoglobin 12.4, sodium 142, potassium 3.5, chloride 110, bicarb 22, anion gap 10, BUN 14, creatinine 0.76, glucose 124. Her long-acting insulin Levemir dosage has been decreased to 20 units from 24 units at bedtime for better glycemic control. Patient continues to be on short acting insulin as well. Patient is medically optimized to be discharged. Patient is advised to follow- up with PCP for further management of her insulin regimen and to optimize glycemia. Patient no longer has her insulin pump. She will get another insulin pump from her PCP. For now she will be discharged on long-acting and sliding scale insulin. Discharge instruction: Patient is advised to follow with PCP and technician. Medications to continue: Simvastatin 40 mg p.o. at bedtime, and enalapril 10 mg p.o. daily, Plavix 75 mg p.o. daily, Coreg 12.5 mg p.o. twice daily, Depakote 500 mg p.o. twice daily New medications: Insulin aspart FlexPen, Lantus Solostar pen 20 units subcu daily, Risperdal 2 mg p.o. at bedtime and Risperdal 1 mg p.o. daily, Synthroid 125 mcg p.o. daily Rest of her medication from her home list have been discontinued. Patient is provide with instruction on DKA upon discharge. Vital signs reviewed. Gen: in no apparent distress, resting comfortably in bed Eyes: PERRL, no scleral injection or icterus HENT: normocephalic, atraumatic, good hearing acuity, moist mucous membranes Neck: full range of motion Resp: CTAB, no rales, rhonchi, or wheezes CVS: normal S1 and S2, no murmurs, rubs or gallops, no edema GI: soft, NTTP, ND, no hepatosplenomegaly : no suprapubic tenderness, no CVAT, rodrigez catheter [is/not] present MSK: no clubbing, no cyanosis, no noted contractures of extremities Skin: no noted rashes, petechiae; temperature of skin is appropriate Neuro: moving all extremities without signs of weakness, CN II-XII intact Psych: cooperative, euthymic mood, insight and judgment intact A total of 36 minutes of time were spent preparing this complex discharge summary. Patient was discharged on 03/16/2024 at 1105. I have seen and evaluated the patient today. Discussed with the resident and agree with the residents finding and plan as documented in the resident's note. Changes highlighted in blue font. Patient Condition at Discharge: Stable Plan - Discharge Summary Discharge Rx Participant: No New Discharge Prescriptions: New Insulin Aspart [Insulin Aspart Flexpen] See Protocol SQ ACHS #7 each risperiDONE [RisperDAL] 2 mg PO HS #30 tab risperiDONE [RisperDAL] 1 mg PO DAILY #30 tab Levothyroxine Sodium [Synthroid] 125 mcg PO DAILY@0630 #60 tab Continue Simvastatin [Zocor] 40 mg PO HS Enalapril [Vasotec] 10 mg PO DAILY Clopidogrel [Plavix] 75 mg PO DAILY carvediloL [Coreg] 12.5 mg PO BID-W/MEALS Divalproex ER [Depakote ER] 500 mg PO BID Changed Insulin Glargine,Hum.rec.anlog [Lantus Solostar Pen] 20 units SQ DAILY #7 each Discontinued Morphine Sulfate Ir [MSIR] 15 mg PO Q4-6H MDD 5 tabs daily Sertraline HCl [Zoloft] 100 mg PO BID INSULIN LISPRO (For Pump) [humaLOG (For Pump)] 0.01 units SQ-PUMP CONTINUOUS QUEtiapine [SEROquel] 50 mg PO BID hydrOXYzine HCL [Atarax] 50 mg PO BID QUEtiapine [SEROquel] 400 mg PO HS Levothyroxine Sodium [Synthroid] 175 mcg PO DAILY Cyclobenzaprine [Flexeril] 5 mg PO BID Phenazopyridine [Pyridium] 200 mg PO TID PRN PRN Reason: Pain Cephalexin [Keflex] 500 mg PO QID Discharge Medication List Clopidogrel [Plavix] 75 mg PO DAILY 02/07/21 [History] Enalapril [Vasotec] 10 mg PO DAILY 02/07/21 [History] Simvastatin [Zocor] 40 mg PO HS 02/07/21 [History] Divalproex ER [Depakote ER] 500 mg PO BID 03/13/24 [History] carvediloL [Coreg] 12.5 mg PO BID-W/MEALS 03/13/24 [History] Insulin Aspart [Insulin Aspart Flexpen] See Protocol SQ ACHS #7 each 03/16/24 [Rx] Insulin Glargine,Hum.rec.anlog [Lantus Solostar Pen] 20 units SQ DAILY #7 each 03/16/24 [Rx] Levothyroxine Sodium [Synthroid] 125 mcg PO DAILY@0630 #60 tab 03/16/24 [Rx] risperiDONE [RisperDAL] 1 mg PO DAILY #30 tab 03/16/24 [Rx] risperiDONE [RisperDAL] 2 mg PO HS #30 tab 03/16/24 [Rx] Follow up Appointment(s)/Referral(s): None,Stated [Primary Care Provider] - 1-2 days Patient Instructions/Handouts: Diabetic Ketoacidosis (DC) Activity/Diet/Wound Care/Special Instructions: Please follow-up with your PCP and technician. Discharge Disposition: HOME SELF-CARE
--- NOTE | 2024-03-16 13:44 | P.PN ---
Subjective Progress Note Date: 03/16/24 Patient is a 53-year-old female with past medical history significant for type 1 diabetes, insulin pump, chronic kidney disease, hypertension, hyperlipidemia, CAD with previous PCI/stenting, among other things. Patient was transferred from [facility] yesterday evening. She was found to have DKA. Presented with altered mental status, and she is currently a poor historian. Patient's son stated that her insulin pump had been malfunctioning for approximately 24 hours. Of note, patient recently treated outpatient for possible UTI. Patient is still in a state of diabetic ketoacidosis. Blood glucose was 499 on arrival to our facility, serum bicarb less than 5, anion gap unmeasurable, urine ketone positive. She is on the insulin protocol. She was just transition to D5W/0.45% saline/20 mEq of potassium at 150 mL/h. She appears confused, she is a poor historian. CBC: WBC count 11.9, hemoglobin 11.6, platelets 193. Most recent CMP: Sodium 142, potassium 4.7, chloride 106, serum bicarb less than 5, BUN 29, creatinine 1.99, glucose most recently 172. LFTs unremarkable. Urinalysis obtained at our facility not remarkable for infection. Urine toxicology screen positive for opiates and TCAs. Brain CT without contrast done on arrival did not show any acute intracranial hemorrhage, no midline shift or mass effect. Hemodynamics are currently stable. Not on any vasopressors. Remains tachycardic. Afebrile. DKA protocol continues. The patient is seen today March 15, 2024 in follow-up on the selective care unit. She was transferred out of the intensive care unit yesterday. She is currently awake and alert in no acute distress. Sitting up in a chair at the bedside. She is maintaining O2 saturations in the 90s on room air. Urine culture revealed no growth. White count 7.9. Hemoglobin 10.7. Platelets 139. Sodium 145. Potassium 3.6. Bicarb 23. BUN 18. Creatinine 0.82. Glucose 106. She has been transitioned back to Levemir and NovoLog sliding scale. She has been initiated on Risperdal and Haldol per psychiatry. The patient is seen today March 16, 2024 in follow-up on the selective care unit. She is currently awake and alert in no acute distress. Ambulating in her room. She denies any shortness of breath, cough or congestion. Maintaining good O2 saturations in the mid 90s on room air. She is afebrile. Hemodynamically stable. White count 8.2. Hemoglobin 12.4. Platelets 125. Sodium 142. Potassium 3.5. Bicarb 22. BUN 14. Creatinine 0.76. Glucose 124. She is continued on Levemir and NovoLog sliding scale. Objective - Vital Signs Vital signs: Vital Signs Temp 97.9 F 03/16/24 08:00 Pulse 77 03/16/24 08:00 Resp 16 03/16/24 08:00 BP 129/68 03/16/24 08:00 Pulse Ox 96 03/16/24 08:00 FiO2 60 03/14/24 16:00 Intake & Output 03/15/24 03/16/24 03/16/24 18:59 06:59 18:59 Intake Total 342 120 Balance 342 120 Weight 75.2 kg Intake: Oral 342 120 Other: Voiding Method Indwelling Catheter Toilet Toilet Bedside Commode Bedside Commode # Voids 2 1 1 # Bowel Movements 2 1 1 - Exam GENERAL EXAM: Alert, 53-year-old female, up ambulating in room, on room air, no acute distress HEAD: Normocephalic and atraumatic EYES: Normal reaction of pupils, equal size. NOSE: Clear with pink turbinates. THROAT: No erythema or exudates. NECK: No masses, no JVD. CHEST: No chest wall deformity. LUNGS: Equal air entry with no crackles, wheeze, rhonchi or dullness. No con versational dyspnea. CVS: S1 and S2 normal with no audible murmur, regular rhythm. No extra heart s ounds. ABDOMEN: No hepatosplenomegaly, active bowel sounds, no guarding or rigidity. SPINE: No scoliosis or deformity SKIN: No rashes CENTRAL NERVOUS SYSTEM: No focal deficits, tone is normal in all 4 extremities. EXTREMITIES: There is no peripheral edema, clubbing, or cyanosis. Peripheral pulses are intact. - Labs CBC & Chem 7: 03/16/24 06:47 03/16/24 06:47 Labs: Abnormal Lab Results - Last 24 Hours (Table) 03/15/24 03/15/24 03/16/24 Range/Units 16:16 20:06 02:04 Plt Count (150-450) k/uL Chloride (98-107) mmol/L Glucose (74-99) mg/dL POC Glucose (mg/dL) 291 H 325 H 116 H (70-110) mg/dL 03/16/24 03/16/24 03/16/24 Range/Units 03:22 06:12 06:47 Plt Count (150-450) k/uL Chloride 110 H (98-107) mmol/L Glucose 124 H (74-99) mg/dL POC Glucose (mg/dL) 60 L 65 L (70-110) mg/dL 03/16/24 03/16/24 Range/Units 06:47 11:06 Plt Count 125 L (150-450) k/uL Chloride (98-107) mmol/L Glucose (74-99) mg/dL POC Glucose (mg/dL) 222 H (70-110) mg/dL Microbiology - Last 24 Hours (Table) 03/14/24 11:21 Blood Culture - Preliminary Blood Assessment and Plan Assessment: Acute diabetic ketoacidosis; CBG 499, serum bicarb less than 5, anion gap unmea surable, urine ketone positive; possibly secondary to insulin pump malfunction, currently on DKA protocol. Recovered Severe anion gap metabolic acidosis, secondary to above, recovered Altered mental status, suspect acute metabolic encephalopathy, secondary to DKA, improved Type 1 diabetes mellitus, normally managed with insulin pump Severe dehydration Acute on chronic kidney disease, secondary to above Recent outpatient treatment UTI Hypertension History of hyperlipidemia History of coronary artery disease with previous PCI/stenting History of hypothyroidism History of depression/bipolar Plan: The patient was seen and evaluated Labs and medications reviewed Transitioned to Levemir/NovoLog Stable and on room air Cleared for discharge I have personally seen and examined the patient, performed the documentation and the assessment and plan as written. Number of minutes spent on the visit: 10 Dictation was produced using Simple dictation software. Please excuse any grammatical, word or spelling errors.
[2024-03-16] MEDS ORDERED: INSULIN DETEMIR (LEVEMIR) 100 UNIT/ML SYR SQ SCH (21:00)
== END 2024-03-16 12:50 | disposition home or self-care (01) | DRG 637 ==
LOC: EC 18:11 → 2SICU 20:38 → 3SCARD 03-14 22:13
PROVIDERS: ADMIT Internal Medicine; ATTEND Internal Medicine
DX: E10.10 Type 1 diabetes mellitus with ketoacidosis without coma (principal); G92.8 Other toxic encephalopathy; E87.0 Hyperosmolality and hypernatremia; N17.9 Acute kidney failure, unspecified; N39.0 Urinary tract infection, site not specified; T85.614A Breakdown (mechanical) of insulin pump, initial encounter; G40.89 Other seizures; E10.22 Type 1 diabetes mellitus with diabetic chronic kidney disease; E10.319 Type 1 diabetes mellitus with unspecified diabetic retinopathy without macular edema; I12.9 Hypertensive chronic kidney disease with stage 1 through stage 4 chronic kidney disease, or unspecified chronic kidney disease; N18.30 Chronic kidney disease, stage 3 unspecified; E78.5 Hyperlipidemia, unspecified; E86.0 Dehydration; E03.9 Hypothyroidism, unspecified; F17.200 Nicotine dependence, unspecified, uncomplicated; F31.9 Bipolar disorder, unspecified; F41.9 Anxiety disorder, unspecified; G47.00 Insomnia, unspecified; G89.29 Other chronic pain; R45.1 Restlessness and agitation; I25.10 Atherosclerotic heart disease of native coronary artery without angina pectoris; F51.9 Sleep disorder not due to a substance or known physiological condition, unspecified; Z56.0 Unemployment, unspecified; Z79.02 Long term (current) use of antithrombotics/antiplatelets; Z79.4 Long term (current) use of insulin; Z79.890 Hormone replacement therapy; Z79.899 Other long term (current) drug therapy; Z87.440 Personal history of urinary (tract) infections; Z95.5 Presence of coronary angioplasty implant and graft; Z88.5 Allergy status to narcotic agent
CPT/HCPCS: 36415; 51702; 70450; 76770; 80048; 80051; 80053; 80164; 80306; 81003; 82140; 82565; 82570; 82607; 82746; 82947; 83036; 84100; 84300; 84439; 84443; 84520; 84540; 85025; 87040; 87086; 96374; 99291